=== PATIENT | male | born 1955 | race Caucasian/White ===

== ENCOUNTER 2018-02-26 14:19 | Emergency (ER) | payer BC, SELFPAY ==
[2018-02-26 14:50] LABS: #Lymphocytes 0.5 thou/uL (1.20-3.40); #Monocytes 0.5 thou/uL (0.11-0.59); #Neutrophils 6.7 thou/uL (1.40-6.50); %Basophils 0.4 % (0.0-1.0); %Eosinophils 0.6 % (0.0-10.0); %Lymphocytes 6.4 % (21.0-51.0); %Monocytes 6.2 % (0.0-10.0); %Neutrophils 86.4 % (42.0-75.0); Hemoglobin 16.3 g/dL (14.0-18.0); Mean Corpuscular HGB CONC 34.7 g/dL (32.0-36.0); Mean Corpuscular Hemoglobin 34.7 pg (27.0-31.0); Mean Platelet Volume 6.5 fL (7.4-10.4); Platelet Count 172 thou/uL (130-400); RBC Distribution Width 11.6 % (11.5-14.5); Red Blood Cell (RBC) Count 4.69 mill/uL (4.70-6.10); White Blood Cell (WBC) Count 7.8 thou/uL (4.8-10.8)
[2018-02-26 15:15] LABS: ALT (SGPT) 38 U/L (8-55); AST (SGOT) 59 U/L (5-34); Albumin 3.8 g/dL (3.4-4.8); Alkaline Phosphatase 94 U/L (40-150); Anion Gap 19 mmol/L (10-20); BUN (Urea Nitrogen) 5 mg/dL (8.4-25.7); Bilirubin, Total 0.6 mg/dL (0.2-1.2); Calc. Creatinine Clearance 0 mL/min (70-130); Calcium 9.1 mg/dL (7.8-10.44); Carbon Dioxide 17 mmol/L (23-31); Chloride 95 mmol/L (98-107); Estimated GFR-MDRD 83; Globulin 2.9 g/dL (2.4-3.5); Glucose 148 mg/dL (80-115); Potassium 4.2 mmol/L (3.5-5.1); Protein, Total 6.7 g/dL (5.8-8.1); Sodium 127 mmol/L (136-145)
[2018-02-26 15:27] LABS: Acetaminophen Less than 6.0 mcg/mL (10.0-30.0); Alcohol Less than 10 mg/dL (Less than 10); CK (CPK) 131 U/L (30-200); Salicylate Less than 8.0 mg/dL (15.0-30.0)
[2018-02-26] MEDS ORDERED: Multivitamins, Adult 10 ML, Thiamine HCl 100 MG, Folic Acid 1 MG in Dextrose 5 %-0.45 %... IV ONE (15:45)
--- NOTE | 2018-02-26 15:51 | CT ---
CT BRAIN WITHOUT CONTRAST: HISTORY: Altered mental status. Seizure. COMPARISON: 03/14/2016 FINDINGS: No evidence of infarct, hemorrhage, midline shift, or abnormal extraaxial fluid collections is seen. The ventricular size is stable, and the basilar cisterns are patent. The bony calvarium is intact. An old left zygomatic fracture is again noted. The visualized paranasal sinuses and mastoid air iraj ls are well aerated. IMPRESSION: No CT evidence of acute intracranial process. POS: [facility]
== END 2018-02-26 16:17 | disposition home or self-care (01) ==
LOC: ERS 14:19
DX: R56.9 Unspecified convulsions (principal); F10.20 Alcohol dependence, uncomplicated; F17.210 Nicotine dependence, cigarettes, uncomplicated
CPT/HCPCS: 36415; 70450; 80053; 80307; 85025; 93005; J3411; J7042

== ENCOUNTER 2018-04-21 16:13 | Inpatient (IN) | payer MEDICARE ==
[2018-04-21] MEDS ORDERED: Morphine 4 MG/ML VIAL SLOW IVP PRN ×3 (16:33→19:46)
[2018-04-21] MEDS ORDERED: Ondansetron PF 4 MG/2 ML Vial SLOW IVP PRN (16:34)
[2018-04-21] MEDS ORDERED: Ketorolac Tromethamine 30 MG/ML VIAL IVP PRN (16:34)
[2018-04-21] MEDS ORDERED: Ondansetron ODT 8 MG TAB PO PRN (16:35)
[2018-04-21] MEDS ORDERED: Acetaminophen 325 MG TAB PO PRN (16:35)
[2018-04-21 16:37] VITALS: BMI 19.6
[2018-04-21] MEDS ORDERED: D5 1/2 NS w/20 mEq KCL 1,000 ML IV SCH (16:45)
--- NOTE | 2018-04-21 17:53 | CT ---
CT PELVIS WITHOUT CONTRAST: CT RIGHT HIP WITH CORONAL AND SAGITTAL REFORMATIONS: HISTORY: Pain in the right hip post fall. FINDINGS: There is a cortical step-off of the subcapital region of the neck of the proximal right femur, consis tent with fracture. There may be associated mild impaction. There is also a questionable fracture i nvolving the subcapital region of the radial aspect of the neck, also suspicious for fracture. The l eft hip is intact. There is fecal material in the rectosigmoid. A fat-containing left inguinal hernia is present. Vasc ular calcifications are noted. IMPRESSION: Fracture of the neck of the right femur. POS: [facility]
[2018-04-21] MEDS ORDERED: Dextrose 5% in Water 1,000 ML IV PRN (19:46)
[2018-04-21] MEDS ORDERED: Dextrose 50% Abboject 50 ML SYRINGE SLOW IVP PRN (19:46)
[2018-04-21] MEDS ORDERED: hydrALAZINE 20 MG/ML VIAL SLOW IVP PRN (19:46)
[2018-04-21] MEDS ORDERED: Ondansetron PF 4 MG/2 ML Vial IVP PRN (19:46)
[2018-04-21] MEDS ORDERED: Lorazepam 2 MG/ML VIAL SLOW IVP PRN (19:46)
[2018-04-21] MEDS ORDERED: Ketorolac Tromethamine 30 MG/ML VIAL IVP SCH (20:15)
[2018-04-21] MEDS ORDERED: traMADol HCl 50 MG TAB PO SCH (20:45)
[2018-04-21] MEDS ORDERED: Prevnar 13-Val Conj/PF 0.5 ML SYRINGE IM ONE (21:00)
[2018-04-21] MEDS ORDERED: Oxazepam 10 MG CAP PO SCH ×2 (21:00)
[2018-04-21] MEDS: Famotidine/PF 20 mg/2ml Vial SLOW IVP SCH (21:29)
[2018-04-21 21:35] LABS: INR-International Normal Ratio 0.9; Prothrombin Time 12.7 SEC (12.0-14.7)
[2018-04-21] MEDS: Sodium Chloride 0.9% 1,000 ML IV SCH (21:35)
[2018-04-21 21:36] LABS: PTT 30.1 SEC (22.9-36.1)
--- NOTE | 2018-04-21 22:16 | CON ---
DATE OF CONSULTATION: 04/21/2018 HISTORY OF PRESENT ILLNESS: Ms. Azul is a 63-year-old male status post fall onto his right hip. The patient had a fall 1 week ago. The patient has chronic alcoholism problems with history of seizures being currently worked up by the Neurology Service. The patient presents today with right hip pain as 10 out of 10. PAST MEDICAL HISTORY: Includes alcoholism, seizures, not otherwise unspecified. PAST SURGICAL HISTORY: Includes left proximal humerus fracture. He has a right clavicle fracture from a fall 1 week ago. MEDICATIONS: 1. Vitamin B12. 2. B6. 3. Imodium. ALLERGIES: NO KNOWN DRUG ALLERGIES. SOCIAL HISTORY: Positive alcohol greater than 12 pack a day, 1/2 packs per day. 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 He has a history of marijuana. His and daughter are at bedside. PHYSICAL EXAMINATION: VITAL SIGNS: Temperature 97.9, heart rate 84, respirations 18, oxygen saturation 100% on room air, blood pressure 176/82. GENERAL: Alert and oriented male, in no acute distress, resting comfortably in bed. EXTREMITIES: Right lower extremity, the patient is neurovascularly intact through L4 through S1 distributions on dorsiflexion and extension, no effusion of the knee. He has pain with internal and external rotation of his right hip and pain with proximation localized to the groin. PELVIS: Otherwise stable to AP and lateral compression. LABORATORY DATA: Radiograph of the right hip and CT scan showing a subcapital femoral neck fracture, nondisplaced. H and H 14 and 41, creatinine 0.8, PTT 25. IMPRESSION: 1. Right subcapital femoral neck fracture. 2. Chronic alcoholism. 3. Seizures. 4. Tobacco abuse. 5. History of multiple falls. ASSESSMENT AND PLAN: The patient will be taken to the OR tomorrow for a closed reduction and percutaneous screw fixation of his right femoral neck fracture. Discussed with the family both total hip arthroplasties in the future for possible avascular necrosis versus failed fixation and requiring total hip. I discussed that given the patient's multiple falls with his medical problems, I would like to do this small procedure given the nondisplaced nature of his femoral neck fracture. I discussed the risks and benefits of surgery to include pain, scar, bleeding, infection, damage to vital structures, decreased range of motion and strength, nonunion, malunion, need for total hip arthroplasty in the future, loss of life or limb. I discussed the patient's mortality associated with a femoral neck fracture. I discussed the risk of withdrawals given the patient's chronic alcoholism. I spoke with both his daughter, , and the patient in the room discussing his mortality both from hip fracture roughly 40%. My further concerns of possible withdrawal, I feel the patient would need medical management postoperatively for his significant risk of withdrawals. The patient's family is unaware, discussed the reason why we are performing the procedures is to help the patient mobilize and remain active. The family and the patient agree with operative fixation. We will plan for surgical intervention in the morning. Job ID: [id number] MTDD
--- NOTE | 2018-04-22 | HP ---
HISTORY OF PRESENT ILLNESS: This is a 63-year-old gentleman who was a transfer from [place] [facility] status post fall last night. The patient is a chronic alcohol abuser, drinks approximately 12 to 18 beers a day every day. 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 He has been retired for approximately 10 years and reports that he does start drinking about lunch time until he falls asleep. The patient has had multiple falls within the last couple of years. Last week, he had a fall in his garage, injuring his right clavicle. Also, he fell a couple of years ago, injuring his left shoulder and requiring surgical repair. The patient also had a episode around [place] this past year, where he had a seizure activity. He was taken to the emergency room with workup and it was determined that the patient had a zero alcohol blood count and it was determined that was the reason potentially for his seizure-like activity. The patient reports he does not really eat much, but does take vitamins daily. The patient had a recent EEG, which was normal. The patient also is scheduled for an MRI of his brain this coming up week. The patient also has a neurologist appointment in May for the new onset of seizures. The patient did have a cardiac workup today in the emergency room. The patient with negative troponin and normal EKG. The patient denies any dizziness, chest pain, or palpitations. The patient and family both feel that these falls are from his chronic alcohol abuse. When the patient fell last night, he had no pain, but woke up this morning with pain to his right hip. The patient denies any urinary problems or any recent illnesses. The patient did receive a banana bag with IV fluids in the emergency room in [place]. The patient also received Toradol for pain IV and morphine. The patient was given Ativan 1 mg also in the emergency room. Dr. Chavez was consulted for patient's right hip fracture. PAST MEDICAL HISTORY: Chronic alcohol abuse; new onset seizure diagnosed in 02/2018, related to alcohol withdrawal; history of hypertension. PAST SURGICAL HISTORY: Bilateral cataracts; right hand surgery, status post staph infection. Left shoulder surgery on 03/09/2016. EGDs x2 for dysphagia. SOCIAL HISTORY: The patient drinks every day, approximately 12 to 18 drinks a day. The patient uses marijuana, the patient also has been a smoker for 40 years, approximately 1-1/2 packs per day. The patient lives at home with his . The patient is retired. REVIEW OF SYSTEMS: A 10-point review of systems is negative unless otherwise indicated in the HPI. PHYSICAL EXAMINATION: VITAL SIGNS: Temperature 97.9, pulse 84, respirations 18, 100% SpO2 on room air, and blood pressure currently 176/82. GENERAL: The patient is awake, alert, no distress. Intermittent pain to right thigh. Family at bedside. HEENT: Normocephalic and atraumatic. Pupils are equal and reactive at 3 mm bilateral. The patient with moist mucous membranes. NECK: With normal range of motion, trachea is midline. No cervical tenderness. RESPIRATORY/CHEST: No respiratory distress, breath sounds clear bilateral, no wheezes, rales, or rhonchi noted. No tenderness to chest or crepitus noted. CARDIOVASCULAR: Regular rate and rhythm. Heart sounds normal. No murmurs noted. The patient with healing bruise over the right distal clavicle with associated tenderness. ABDOMEN: Soft, nontender, and nondistended. No peritoneal signs. No rigidity or guarding. No rebound. Positive active bowel sounds. BACK: Normal range of motion. No tenderness. EXTREMITIES: Upper extremities, the patient with limited range of motion due to right shoulder pain due to recent clavicle fracture 1 week ago. Left upper extremity, normal findings. Both upper extremities with normal pulses 2+ and sensation intact. Lower extremities, right hip pain with mild shortening. Positive distal pulses bilateral. NEUROLOGIC: The patient oriented to person, place, time, and event. Speech is normal and cranial nerves are intact. LABORATORY DATA: WBC 6.6, RBC 4.31, hemoglobin 14.5, hematocrit 41.5, MCV 96.2, MCH 33.5, MCHC 38.8, RDW 11.2, platelets 306, and MPV 5.9. APTT 25.9. Sodium 135, potassium 5.1, chloride 99, CO2 of 25, anion gap 16, BUN 6, creatinine 0.80, estimated GFR 90, glucose 100, and calcium 9.9. Total bilirubin 0.9, AST 39, ALT 27, and alkaline phosphatase 101. CK-MB 1.5, CK 72, troponin 0.010. Serum total protein 6.6, albumin 4.0, globulin 2.6, albumin-globulin ratio 1.5. DIAGNOSTICS: Hip x-ray suggesting a CT or MRI for confirmation of right femoral neck impacted subcapital neck fracture. Pelvis x-ray with limited evaluation of the right femoral neck due to rotation of the right hip. Lower extremity CT, fracture at the neck of the right femur. Pelvis CT, again fracture of the neck of the right femur. ASSESSMENT: 1. Status post ground-level fall with recurrent falls. 2. Femoral neck fracture, right. 3. Chronic alcohol abuse. 4. Acute traumatic pain. PLAN: We will admit the patient to the surgical ortho floor. The patient will be placed on seizure precautions and watch closely for alcohol withdrawal. The patient will be started on Serax 3 times a day. We will control the patient's pain. The patient will be placed n.p.o. after midnight except for medications for repair of the right femur fracture with Dr. Chavez. PT, OT, and rehab screen will be placed. The patient has been discussed with the attending trauma surgeon, Dr. Gaitan, who agrees with the plan. Job ID: [id number]
[2018-04-22] MEDS: Acetaminophen 1,000 MG in Premix Bag 1 BAG IVPB SCH ×2 (00:12→05:52)
[2018-04-22 02:49] LABS: Bilirubin Negative (Negative); Blood, Urine Negative (Negative); Clarity CLEAR (Clear); Glucose, Urine (Dipstick) Negative (Negative); Leukocyte Negative (Negative); Nitrite Negative (Negative); Protein, Urine (Dipstick) Negative (Neg-Trace)
[2018-04-22 02:52] LABS: Bacteria/HPF None Seen HPF (None Seen); Hyaline Casts/LPF 0-3 HYALINE CAST LPF (0-3 Hyaline); Pathc Cast-AUWi Flag 0.14 (0-2.49); RBC/HPF 0-3 HPF (0-3); Squamous Epithelial 0-3 HPF (0-3); WBC/HPF 0-3 HPF (0-3)
[2018-04-22] MEDS: Ketorolac Tromethamine 30 MG/ML VIAL IVP SCH ×3 (03:13→15:33)
[2018-04-22 05:31] LABS: #Basophils 0.1 thou/uL (0.0-0.2); #Eosinphils 0.1 thou/uL (0.0-0.7); #Lymphocytes 1.7 thou/uL (1.20-3.40); #Monocytes 0.7 thou/uL (0.11-0.59); #Neutrophils 3.7 thou/uL (1.40-6.50); %Basophils 0.8 % (0.0-1.0); %Eosinophils 2.1 % (0.0-10.0); %Lymphocytes 27.2 % (21.0-51.0); %Monocytes 10.7 % (0.0-10.0); %Neutrophils 59.1 % (42.0-75.0); Hemoglobin 13.2 g/dL (14.0-18.0); Mean Corpuscular HGB CONC 33.3 g/dL (32.0-36.0); Mean Corpuscular Hemoglobin 34.7 pg (27.0-31.0); Mean Platelet Volume 6.8 fL (7.4-10.4); Platelet Count 260 thou/uL (130-400); Red Blood Cell (RBC) Count 3.81 mill/uL (4.70-6.10); White Blood Cell (WBC) Count 6.2 thou/uL (4.8-10.8)
[2018-04-22 05:56] LABS: ALT (SGPT) 16 U/L (8-55); AST (SGOT) 24 U/L (5-34); Albumin 3.4 g/dL (3.4-4.8); Alkaline Phosphatase 94 U/L (40-150); Anion Gap 15 mmol/L (10-20); BUN (Urea Nitrogen) 8 mg/dL (8.4-25.7); Calc. Creatinine Clearance 88 mL/min (70-130); Calcium 8.9 mg/dL (7.8-10.44); Carbon Dioxide 23 mmol/L (23-31); Chloride 99 mmol/L (98-107); Estimated GFR-MDRD Greater than 90; Globulin 2.5 g/dL (2.4-3.5); Glucose 79 mg/dL (80-115); Magnesium 2.1 mg/dL (1.6-2.6); Phosphorus 3.8 mg/dL (2.3-4.7); Potassium 3.7 mmol/L (3.5-5.1); Protein, Total 5.9 g/dL (5.8-8.1); Sodium 133 mmol/L (136-145)
[2018-04-22] MEDS ORDERED: Potassium Chloride 40 MEQ in Premix Bag 1 BAG IVPB SCH (06:15)
[2018-04-22] MEDS: Potassium Chloride 20 MEQ in Premix Bag 1 BAG IVPB SCH ×2 (07:58→09:08)
[2018-04-22] MEDS: Sodium Chloride 0.9% 1,000 ML IV SCH ×3 (08:09→17:33)
[2018-04-22] MEDS: Famotidine/PF 20 mg/2ml Vial SLOW IVP SCH (09:05)
[2018-04-22] MEDS: Folic Acid 1 MG TAB PO SCH (09:06)
[2018-04-22] MEDS: Oxazepam 10 MG CAP PO SCH ×4 (09:08→20:03)
[2018-04-22] MEDS: Morphine 4 MG/ML VIAL SLOW IVP PRN ×2 (10:19→17:18)
[2018-04-22 12:35] LABS: Folate (Folic Acid) 13.9 ng/mL (7.0-31.4)
[2018-04-22] MEDS ORDERED: Fentanyl 100 MCG/2 ML VIAL ONE ×3 (12:43→15:38)
--- NOTE | 2018-04-22 14:21 | RAD ---
EXAM: CHEST ONE VIEW: 04/22/18 HISTORY: Preoperative evaluation following a fall. COMPARISON: 04/24/16. FINDINGS: Postsurgical changes involving the left shoulder, stable. Multiple healed left rib fractures. No pneu monia, edema, or other significant acute intrathoracic disease. Heart size is normal. IMPRESSION: No acute intrathoracic disease. Postsurgical changes left shoulder. Healed left rib fractures. Stable from prior study. POS: [facility]
--- NOTE | 2018-04-22 14:34 | PRG ---
DATE OF SERVICE: 04/22/2018 SUBJECTIVE: Mr. Azul is a 63-year-old man, who is status post ground level fall with right femoral neck fracture. He has a history pertinent for recurrent falls and chronic alcohol abuse. The patient reports being in pain at the fracture site that has been uncontrolled by current pain regimen. After that, he has not had any acute events overnight. OBJECTIVE: VITAL SIGNS: Temp 97.9, pulse 57, respirations 18, O2 saturation 97 on room air, and BP 156/67. GENERAL: The patient is awake, alert, sitting up in bed, appears to be in acute distress from his pain. HEENT: Unremarkable. CARDIOVASCULAR: Regular rate and rhythm. No rubs, murmurs, or gallops. RESPIRATORY: Lungs are clear. No acute respiratory distress. Equal rise and fall of chest. ABDOMEN: Soft, nontender, nondistended. EXTREMITIES: The patient moves all 4 extremities. Movement to the right leg is limited due to pain. However, neurovascularly intact. LABORATORY DATA: Hematology pertinent for hemoglobin 13.2, hematocrit 39.6, MCV 104, CBC. Sodium 133, BUN 8, creatinine 0.78. There is no pertinent imaging to review at this time. ASSESSMENT: 1. Status post ground level fall with history of recurrent falls. 2. Right femoral neck fracture. 3. Chronic alcohol abuse. 4. Acute traumatic pain. PLAN: 1. Add morphine to pain regimen for better control while the patient is n.p.o. 2. The patient is scheduled to go to the OR today with Dr. Chavez for the fixation of right femoral neck fracture. 3. Chronic alcohol abuse. The patient has Serax in addition to having received a banana bag with daily supplements of folic acid and thiamine. We will continue to monitor the patient for any signs of withdrawal. 4. Plan for PT, OT, and rehab screen after surgery. The patient was seen and assessed by Dr. Clement Rivers, who agrees with the plan above. Job ID: [id number]
[2018-04-22] MEDS ORDERED: Lidocaine 1% PF 5 ML VIAL ONE (15:03)
[2018-04-22] MEDS ORDERED: PROPOFOL 200 MG/20 ML VIAL ONE (15:03)
[2018-04-22] MEDS ORDERED: ePHEDrine 50 MG/ML VIAL ONE (15:03)
[2018-04-22] MEDS ORDERED: Rocuronium Bromide 10 MG/ML (10ML VIAL) ONE (15:03)
[2018-04-22] MEDS ORDERED: Ondansetron PF 4 MG/2 ML Vial ONE (15:03)
[2018-04-22] MEDS ORDERED: Dexamethasone 20 MG/5 ML VIAL ONE (15:03)
[2018-04-22] MEDS ORDERED: Glycopyrrolate 0.2 MG/ML 5 ML SYRINGE ONE (15:03)
--- NOTE | 2018-04-22 15:47 | RAD ---
RIGHT HIP 2 VIEWS: HISTORY: Pain, right hip screws. COMPARISON: CT prior day. FINDINGS: There is satisfactory position of the 3 percutaneous partially threaded cannulated screws of the righ t femoral neck. IMPRESSION: Satisfactory postoperative appearance. POS: [facility]
[2018-04-22] MEDS ORDERED: CEFAZOLIN/Water 2 GM/20 ML SYRINGE SLOW IVP SCH (16:03)
[2018-04-22] MEDS: CEFAZOLIN 2 GM in Premix Bag 1 BAG IVPB SCH (17:15)
[2018-04-22] MEDS: Nicotine 21 MG PATCH TD SCH (17:32)
[2018-04-22] MEDS ORDERED: traMADol HCl 50 MG TAB PO PRN (18:13)
[2018-04-22] MEDS: Acetaminophen 500 MG TAB PO SCH ×2 (18:36→23:09)
[2018-04-22] MEDS: traMADol HCl 50 MG TAB PO SCH ×2 (18:37→23:09)
[2018-04-22] MEDS: Senokot S 8.6-50 MG TAB PO SCH (20:02)
[2018-04-22] MEDS: Famotidine 20 MG TAB PO SCH (20:03)
[2018-04-22] MEDS: Ibuprofen 800 MG TAB PO SCH (23:09)
[2018-04-23] MEDS: CEFAZOLIN 2 GM in Premix Bag 1 BAG IVPB SCH (01:11)
[2018-04-23] MEDS: Ibuprofen 800 MG TAB PO SCH ×3 (05:12→21:23)
[2018-04-23] MEDS: Acetaminophen 500 MG TAB PO SCH ×3 (05:12→18:22)
[2018-04-23] MEDS: traMADol HCl 50 MG TAB PO SCH ×3 (05:12→18:23)
[2018-04-23] MEDS: Sodium Chloride 0.9% 1,000 ML IV SCH (05:20)
[2018-04-23 05:29] LABS: #Lymphocytes 0.6 thou/uL (1.20-3.40); #Monocytes 0.7 thou/uL (0.11-0.59); #Neutrophils 8.1 thou/uL (1.40-6.50); %Lymphocytes 6.6 % (21.0-51.0); %Monocytes 7.4 % (0.0-10.0); %Neutrophils 86.1 % (42.0-75.0); Hemoglobin 13.1 g/dL (14.0-18.0); Mean Corpuscular HGB CONC 33.8 g/dL (32.0-36.0); Mean Corpuscular Hemoglobin 35.1 pg (27.0-31.0); Mean Platelet Volume 6.7 fL (7.4-10.4); Platelet Count 249 thou/uL (130-400); RBC Distribution Width 11.6 % (11.5-14.5); Red Blood Cell (RBC) Count 3.75 mill/uL (4.70-6.10); White Blood Cell (WBC) Count 9.4 thou/uL (4.8-10.8)
[2018-04-23 05:38] LABS: Anion Gap 19 mmol/L (10-20); BUN (Urea Nitrogen) 8 mg/dL (8.4-25.7); Calc. Creatinine Clearance 89 mL/min (70-130); Calcium 9.4 mg/dL (7.8-10.44); Carbon Dioxide 19 mmol/L (23-31); Chloride 97 mmol/L (98-107); Estimated GFR-MDRD Greater than 90; Glucose 113 mg/dL (80-115); Magnesium 2.1 mg/dL (1.6-2.6); Phosphorus 3.9 mg/dL (2.3-4.7); Potassium 4.6 mmol/L (3.5-5.1); Sodium 130 mmol/L (136-145)
[2018-04-23] MEDS ORDERED: hydrOXYzine 10 MG TAB PO PRN (06:38)
[2018-04-23] MEDS ORDERED: hydrALAZINE 10 MG TAB PO PRN (06:44)
[2018-04-23] MEDS ORDERED: Oxazepam 10 MG CAP PO SCH ×3 (07:18→12:00)
[2018-04-23] MEDS: Folic Acid 1 MG TAB PO SCH (08:45)
[2018-04-23] MEDS: Famotidine 20 MG TAB PO SCH ×2 (08:45→21:23)
[2018-04-23] MEDS: Aspirin 81 mg Enteric Coated Tablet PO SCH ×2 (08:45→21:23)
[2018-04-23] MEDS: Senokot S 8.6-50 MG TAB PO SCH ×2 (08:45→21:23)
[2018-04-23] MEDS: Oxazepam 10 MG CAP PO SCH ×3 (08:46→21:22)
[2018-04-23] MEDS: Polyethylene Glycol 3350 17 GM Packet PO SCH (08:46)
[2018-04-23] MEDS ORDERED: Nicotine 21 MG PATCH TD SCH (09:00)
[2018-04-23] MEDS ORDERED: cloNIDine 0.2 MG TAB PO SCH (12:00)
--- NOTE | 2018-04-23 12:44 | OP ---
DATE OF PROCEDURE: 04/22/2018 PREOPERATIVE DIAGNOSIS: Right femoral neck fracture, nondisplaced. POSTOPERATIVE DIAGNOSIS: Right femoral neck fracture, nondisplaced. PROCEDURE PERFORMED: Closed reduction and percutaneous screw fixation of a femoral neck fracture. COAL HAULER OPERATOR: None. ANESTHESIOLOGIST: Dr. Lillian Castellanos. ANESTHESIA: The patient received a general endotracheal intubation. ESTIMATED BLOOD LOSS: 50 mL. TOURNIQUET TIME: None. ANTIBIOTICS: Ancef 2 g. IMPLANTS: Two 73 screws, one 95, and two 105 and three washers. COMPLICATIONS: None. HISTORY OF PRESENT ILLNESS: Mr. Azul is a 63-year-old male with history of chronic alcoholism and a fall a week ago, broke his clavicle. He had a fall today and sustained a right femoral neck fracture, nondisplaced. I discussed with the patient risks and benefits of an open reduction and internal fixation versus total hip arthroplasty with percutaneous screws. I discussed the risks and benefits of surgery to include pain, scar, bleeding, infection, continued pain despite surgical intervention, failure of hardware, need for further surgeries, conversion to total hip arthroplasty, loss of life or limb. The patient understood that he may develop AVN, may complete through the fracture if he continues to drink. I discussed risk of delirium tremens. I discussed the patient's mortality with the patient and he understood all these risks and benefits and elected to proceed. DESCRIPTION OF PROCEDURE: Time-out was performed, designating the patient's right lower extremity as the operative site, based on site, consents, and markings. After time-out, the patient's right lower extremity was prepped and draped in sterile fashion. The patient had a lateral incision made down through skin to the IT band. Screws were placed across the patient's femoral neck under fluoroscopic guidance using the guide for helping to place the screws a distance apart, placed it through an inverted triangle fashion superiorly and one inferiorly to close the neck. I placed drills on top and placed two 105s and one 95 mm screw with a washer. The patient had overall maintained his alignment throughout the procedure without displacement. I then washed and I closed the ITB band with 0, 2-0 and kaya for skin. The patient will be weightbearing as tolerated. He will be followed inhouse by Trauma. I am concerned about the patient's risk for DTs and the patient's mortality associated with this fracture. Job ID: [id number] MTDD
--- NOTE | 2018-04-23 13:38 | PRG ---
DATE OF SERVICE: 04/23/2018 SUBJECTIVE: Mr. Zaragoza is a 63-year-old man, who is status post ground level fall with right femoral neck fracture. He is postop day #1 for closed reduction and percutaneous fixation of the right femoral fracture. He also has a history pertinent for recurrent falls and chronic alcohol abuse. Overnight, patient became agitated with high blood pressures and was A and O x2, oriented only to person and time, but not place. He was stating he wanted to go home and pulled his IV lines out. This is likely due to his alcohol withdrawal despite being on Serax. The patient was unable to sleep well due to his agitation. Aside from this he has been recovering well from surgery with minimal pain and tolerating a regular diet OBJECTIVE: VITAL SIGNS: Temperature is 97.5, pulse is 65, respiration 14, O2 saturation 100% on room air, blood pressure is 170/83. GENERAL: The patient is awake, alert, sitting up in bed and talking on the phone. He is not in any acute distress. HEENT: Unremarkable. CARDIOVASCULAR: Regular rate and rhythm. No rubs, murmurs, or gallops. RESPIRATORY: Lungs are clear, no acute respiratory distress. Equal rise and fall of chest. ABDOMEN: Soft, nontender, nondistended. EXTREMITIES: The patient moves all 4 extremities. There is an area of dressing on his right hip from the surgery. He is able to move his right leg and is neurovascularly intact. However, he has admitted to pain and recent surgery. LABORATORY DATA: WBC 9.4, hemoglobin 13.1, hematocrit 38.8, MCV 104, platelet count 249. Chemistry: Sodium 130, chloride 97, carbon dioxide 19, BUN 8, creatinine 0.77, GFR greater than 90, phosphorus 3.9, magnesium 2.1. DIAGNOSTIC IMAGING: There is no new diagnostic imaging this morning. ASSESSMENT: 1. Status post ground level fall with history of recurrent falls. 2. Right femoral neck fracture, status post closed reduction and percutaneous screw fixation. 3. Chronic alcohol abuse. 4. Acute alcohol withdrawal, stable 5. Acute traumatic pain. 6. Acute versus chronic hyponatremia. PLAN: 1. Now the patient is postop and tolerating p.o., we will discontinue IV pain medications and switch him to oral pain regimen. 2. For acute alcohol withdrawal: We will increase the patient Serax dosing to 20 mg 4 times a day. Will add Clonidine 0.2 mg q.6 hours to treat both elevated blood pressure and acute alcohol withdrawals. 3. Chronic alcohol abuse: Continue daily thiamine, folate and multivitamin 4. The patient plans to work with PT, OT and rehab screen today 5. Elevated blood pressures: The patient does not have a history of hypertension; however, this new onset of elevated blood pressures is likely due to acute alcohol withdrawal 6. Acute versus chronic hyponatremia: Likely due to patient's history of chronic alcohol abuse. Other causes have been ruled out and are unlikely. We will water restrict the patient to less than 1.8 L a day. 7. DVT prophylaxis. We will start the patient on aspirin 81 mg b.i.d. and encourage walking with Physical Therapy. This patient was seen and assessed by Dr. Clement Rivers, who agrees with the above findings. Job ID: [id number] [facility]
[2018-04-23] MEDS: cloNIDine 0.3 MG TAB PO SCH (18:22)
[2018-04-23] MEDS: Nicotine 21 MG PATCH TD SCH (18:23)
[2018-04-24] MEDS: cloNIDine 0.3 MG TAB PO SCH ×3 (00:48→11:36)
[2018-04-24] MEDS: traMADol HCl 50 MG TAB PO SCH ×3 (00:48→11:34)
[2018-04-24] MEDS: Acetaminophen 500 MG TAB PO SCH ×3 (00:48→11:34)
[2018-04-24] MEDS: Oxazepam 10 MG CAP PO SCH ×3 (03:29→14:21)
[2018-04-24] MEDS: Ibuprofen 800 MG TAB PO SCH ×2 (06:09→14:21)
[2018-04-24 07:13] LABS: #Eosinphils 0.1 thou/uL (0.0-0.7); #Lymphocytes 1.7 thou/uL (1.20-3.40); #Monocytes 0.5 thou/uL (0.11-0.59); #Neutrophils 3.4 thou/uL (1.40-6.50); %Basophils 0.5 % (0.0-1.0); %Eosinophils 1.3 % (0.0-10.0); %Lymphocytes 29.8 % (21.0-51.0); %Monocytes 9.2 % (0.0-10.0); %Neutrophils 59.2 % (42.0-75.0); Hemoglobin 12.1 g/dL (14.0-18.0); Mean Corpuscular HGB CONC 34.1 g/dL (32.0-36.0); Mean Corpuscular Hemoglobin 35.4 pg (27.0-31.0); Mean Platelet Volume 6.9 fL (7.4-10.4); Platelet Count 222 thou/uL (130-400); RBC Distribution Width 11.8 % (11.5-14.5); Red Blood Cell (RBC) Count 3.42 mill/uL (4.70-6.10); White Blood Cell (WBC) Count 5.8 thou/uL (4.8-10.8)
[2018-04-24 07:30] LABS: Anion Gap 14 mmol/L (10-20); BUN (Urea Nitrogen) 8 mg/dL (8.4-25.7); Calc. Creatinine Clearance 98 mL/min (70-130); Calcium 9.3 mg/dL (7.8-10.44); Carbon Dioxide 24 mmol/L (23-31); Chloride 100 mmol/L (98-107); Estimated GFR-MDRD Greater than 90; Glucose 77 mg/dL (80-115); Magnesium 1.9 mg/dL (1.6-2.6); Phosphorus 3.3 mg/dL (2.3-4.7); Potassium 3.6 mmol/L (3.5-5.1); Sodium 134 mmol/L (136-145)
[2018-04-24] MEDS: Potassium Phosphate 15 MMOL in Sodium Chloride 0.9% 250 ML 250 ML IVPB SCH ×2 (09:38→09:39)
[2018-04-24] MEDS: Senokot S 8.6-50 MG TAB PO SCH (09:39)
[2018-04-24] MEDS: Polyethylene Glycol 3350 17 GM Packet PO SCH (09:39)
[2018-04-24] MEDS: Famotidine 20 MG TAB PO SCH (09:39)
[2018-04-24] MEDS: Folic Acid 1 MG TAB PO SCH (09:40)
[2018-04-24] MEDS: Aspirin 81 mg Enteric Coated Tablet PO SCH (11:34)
--- NOTE | 2018-04-24 16:26 | DIS ---
DATE OF ADMISSION: 04/21/2018 DATE OF DISCHARGE: 04/24/2018 ADMISSION DIAGNOSES: 1. Mechanical fall from standing, recurrent. 2. Right femoral neck fracture. 3. Hyponatremia. 4. Alcohol abuse. DISCHARGE DIAGNOSES: 1. Mechanical fall from standing, recurrent. 2. Right femoral neck fracture. 3. Hyponatremia. 4. Alcohol abuse. CONSULTING PHYSICIAN: Deshaun Chavez MD. PROCEDURE: Closed reduction and percutaneous screw fixation of a femoral neck fracture on the right on April 22, 2018. HOSPITAL COURSE: The patient is a 63-year-old male who reported unwitnessed fall. The patient states that he drinks every day until he passes out for the last 10 years. He has been retired for 10 years and this has caused him to have several recent falls. On evaluation by the emergency department, it was noted that he had a right femoral neck fracture and an old clavicle fracture. He was admitted to the Trauma Service and went to the OR on April 22, where he received a closed reduction and percutaneous screw fixation of a femoral neck fracture. He was subsequently sent to the floor. He did start to show some initial signs of alcohol withdrawal, but the patient had already been started at Serax 10 mg q.8 hours on admission. He became hypertensive and more agitated and subsequently the Serax increased to 20 mg q.8 hours as well as clonidine 0.3 mg q.6 hours was started. The patient subsequently had improvement in his ability to participate physical therapy as well as his vital signs. After working with physical therapy, it was determined that the patient would most benefit from going to acute rehab. At the time of discharge, the patient was tolerating a regular diet, participating in physical therapy and voiding without difficulty and has had a bowel movement. DISCHARGE DISPOSITION: Acute rehab. DISCHARGE CONDITION: Satisfactory. PHYSICAL EXAMINATION: VITAL SIGNS: Temperature 97.5, pulse 57, respirations 18, oxygen saturation 99%, blood pressure 156/79. GENERAL: Middle-aged male, sitting up at edge of bed, working with physical therapy. The patient ambulating at the time of evaluation this morning. No signs of acute distress. PULMONARY: Equal chest rise and fall. Breath sounds clear bilaterally. No signs of acute distress. CARDIO: Regular rate and rhythm. No murmurs, gallops, or rubs. ABDOMEN: Soft, nontender, nondistended. EXTREMITIES: Gross motor and sensation intact in all 4 extremities. 2+ pulses in all extremities. No swelling noted. DISCHARGE INSTRUCTIONS: The patient is to be discharged to an acute rehab facility with activity as tolerated and weightbearing as tolerated bilateral lower extremities. He is on a regular diet with Ensure t.i.d. He is to receive occupational and physical therapy and continue to use his incentive spirometer and walker. DISCHARGE MEDICATIONS: Include acetaminophen, aspirin, clonidine, famotidine, folic acid, ibuprofen, nicotine, Serax, MiraLAX, Senokot, thiamine, and tramadol. FOLLOWUP: He has a followup appointment with Orthopedic Surgery in 10 days, Dr. Chavez. This is merely a summary of the patient's hospitalization. For full details, please see his medical record in its entirety. Job ID: [id number]
[2018-04-24 16:37] VITALS: BP 151/65; TEMP 97.8
== END 2018-04-24 16:35 | DRG 481 ==
LOC: SURG B 16:13 → SURG A 04-23 07:04
PROVIDERS: ADMIT Surgery; ATTEND Surgery
PROC: 0QS634Z Reposition Right Upper Femur with Internal Fixation Device, Percutaneous Approach (ICD-10-PCS; principal; 2018-04-22)
DX: S72.011A Unspecified intracapsular fracture of right femur, initial encounter for closed fracture (principal); E87.1 Hypo-osmolality and hyponatremia; I10 Essential (primary) hypertension; F10.10 Alcohol abuse, uncomplicated; R45.1 Restlessness and agitation; F17.210 Nicotine dependence, cigarettes, uncomplicated; Z98.41 Cataract extraction status, right eye; Z98.42 Cataract extraction status, left eye; Z98.890 Other specified postprocedural states; Z91.81 History of falling; W19.XXXA Unspecified fall, initial encounter
CPT/HCPCS: 36415; 36416; 71045; 72192; 76000; 80048; 80053; 81001; 82607; 82746; 83735; 83930; 83935; 84100; 85025; 85610; 85730; C1713; C1769; J0131; J1100; J1885; J2001; J2060; J2270; J2405; J2704; J3010; J3411; J3480; J3490; J7050; S0028

== ENCOUNTER 2018-05-24 12:28 | Inpatient (IN) | payer MEDICARE, OTHER ==
[2018-05-24] MEDS ORDERED: Bisacodyl 10 MG SUPP PR PRN (13:53)
[2018-05-24] MEDS ORDERED: Milk Of Magnesia 30 ML UDCUP PO PRN (13:53)
[2018-05-24] MEDS ORDERED: Fentanyl 100 MCG/2 ML VIAL SLOW IVP PRN (13:53)
[2018-05-24] MEDS ORDERED: traMADol HCl 50 MG TAB PO PRN (13:53)
[2018-05-24] MEDS ORDERED: Fleet Enema 133 ML BOT PR PRN (13:53)
[2018-05-24] MEDS ORDERED: Ondansetron ODT 4 MG TAB PO PRN (13:53)
[2018-05-24 14:39] VITALS: BMI 20.9
[2018-05-24 14:50] LABS: #Eosinphils 0.2 thou/uL (0.0-0.7); #Lymphocytes 1.8 thou/uL (1.20-3.40); #Monocytes 1.2 thou/uL (0.11-0.59); #Neutrophils 8.2 thou/uL (1.40-6.50); %Basophils 0.2 % (0.0-1.0); %Eosinophils 1.9 % (0.0-10.0); %Lymphocytes 16.1 % (21.0-51.0); %Neutrophils 71.7 % (42.0-75.0); Hemoglobin 11.7 g/dL (14.0-18.0); Mean Corpuscular HGB CONC 34.4 g/dL (32.0-36.0); Mean Corpuscular Hemoglobin 34.7 pg (27.0-31.0); Mean Platelet Volume 6.4 fL (7.4-10.4); Platelet Count 270 thou/uL (130-400); RBC Distribution Width 11.4 % (11.5-14.5); Red Blood Cell (RBC) Count 3.36 mill/uL (4.70-6.10); White Blood Cell (WBC) Count 11.4 thou/uL (4.8-10.8)
[2018-05-24 14:55] LABS: INR-International Normal Ratio 0.9; Prothrombin Time 12.6 SEC (12.0-14.7)
[2018-05-24 15:21] LABS: ALT (SGPT) 13 U/L (8-55); AST (SGOT) 16 U/L (5-34); Albumin 3.6 g/dL (3.4-4.8); Alkaline Phosphatase 90 U/L (40-150); Anion Gap 15 mmol/L (10-20); BUN (Urea Nitrogen) 16 mg/dL (8.4-25.7); Bilirubin, Total 0.7 mg/dL (0.2-1.2); Calc. Creatinine Clearance 75 mL/min (70-130); Calcium 9.6 mg/dL (7.8-10.44); Carbon Dioxide 25 mmol/L (23-31); Chloride 89 mmol/L (98-107); Estimated GFR-MDRD 77; Globulin 2.7 g/dL (2.4-3.5); Glucose 99 mg/dL (80-115); Potassium 4.5 mmol/L (3.5-5.1); Protein, Total 6.3 g/dL (5.8-8.1); Sodium 124 mmol/L (136-145)
--- NOTE | 2018-05-24 15:34 | RAD ---
2 VIEWS RIGHT FEMUR: Date: 05/24/18 COMPARISON: 04/22/18. HISTORY: Right subtrochanteric femur fracture. FINDINGS: Two views of the right femur show three screws extending through the femoral neck. There is a fractur e of the femur extending parallel to the screws an inferior to the screws in the intertrochanteric re gion. The screws do not appear completely affixed to the greater trochanter and may have backed out s lightly. No fracture of the distal femur is seen. Vascular calcifications are present. IMPRESSION: There is a fracture just distal to the three screws seen on the prior examination, extending from the lesser trochanter just inferior to the screws involving the lateral aspect of the cortex. These scre ws do not appear to transverse this fracture. POS: [facility]
[2018-05-24] MEDS: traMADol HCl 50 MG TAB PO PRN (19:14)
[2018-05-24] MEDS ORDERED: Melatonin 3 MG TAB PO PRN (20:45)
[2018-05-24] MEDS ORDERED: Prevnar 13-Val Conj/PF 0.5 ML SYRINGE IM ONE (21:00)
[2018-05-24] MEDS: Docusate 100 MG CAP PO SCH (21:22)
[2018-05-24] MEDS: Ibuprofen 800 MG TAB PO SCH (21:22)
[2018-05-24] MEDS: Nicotine 14 MG PATCH TOP SCH (21:22)
[2018-05-24] MEDS: D5 0.9% NS w/ 20 mEq KCl 1,000 ML IV SCH (22:28)
[2018-05-25] MEDS: cloNIDine 0.3 MG TAB PO SCH ×6 (00:32→20:59)
[2018-05-25] MEDS: Ibuprofen 800 MG TAB PO SCH (06:24)
[2018-05-25] MEDS: traMADol HCl 50 MG TAB PO PRN ×3 (06:26→20:59)
[2018-05-25] MEDS ORDERED: Acetaminophen 500 MG TAB PO PRN (07:37)
[2018-05-25] MEDS ORDERED: Calcium Carbonate 500 MG ChewTAB PO PRN (07:37)
[2018-05-25] MEDS ORDERED: Diabetic Tussin 200 MG/10 ML UDCUP PO PRN (07:37)
[2018-05-25] MEDS ORDERED: Ondansetron ODT 4 MG TAB PO PRN (07:37)
[2018-05-25] MEDS ORDERED: Benzonatate 100 MG CAP PO PRN (07:37)
[2018-05-25] MEDS ORDERED: hydrALAZINE 20 MG/ML VIAL SLOW IVP PRN (07:37)
[2018-05-25] MEDS ORDERED: Sodium Chloride 0.65% Nasal 44 ML BOT EA NARE PRN (07:37)
[2018-05-25] MEDS ORDERED: Lorazepam 2 MG/ML VIAL SLOW IVP PRN (07:38)
[2018-05-25] MEDS: chlordiazePOXIDE HCl 25 MG CAP PO SCH (08:33)
[2018-05-25] MEDS: Thiamine 100 MG TAB PO SCH (08:38)
[2018-05-25] MEDS: Senokot S 8.6-50 MG TAB PO SCH (08:38)
[2018-05-25] MEDS: Docusate 100 MG CAP PO SCH ×2 (08:38→21:00)
[2018-05-25] MEDS: Folic Acid 1 MG TAB PO SCH (08:38)
[2018-05-25] MEDS: D5 0.9% NS w/ 20 mEq KCl 1,000 ML IV SCH ×2 (09:18→21:00)
[2018-05-25] MEDS ORDERED: Sodium Chloride 0.9% 100 ML ONE (09:29)
[2018-05-25] MEDS ORDERED: Tranexamic Acid 1,000 MG/10 ML VIAL ONE (09:29)
[2018-05-25] MEDS ORDERED: Fentanyl 100 MCG/2 ML VIAL ONE (10:35)
--- NOTE | 2018-05-25 12:33 | RAD ---
RIGHT FEMUR RADIOGRAPHS 2 VIEWS: DATE: 05/25/2018. PROVIDED CLINICAL HISTORY: ORIF. FINDINGS: Two spot fluoroscopic views of the right femur demonstrate interval postoperative changes of antegrad e intramedullary femoral nail placement with interlocking proximal and distal screws transfixing prev iously described subtrochanteric right proximal femoral fracture, with subsequent improved alignment. IMPRESSION: As above. POS: [facility]
[2018-05-25] MEDS ORDERED: Acetaminophen 325 MG TAB PO PRN (12:34)
[2018-05-25] MEDS ORDERED: Bisacodyl 10 MG SUPP PR PRN (12:34)
[2018-05-25] MEDS ORDERED: Ondansetron PF 4 MG/2 ML Vial IVP PRN (12:34)
[2018-05-25] MEDS ORDERED: Fleet Enema 133 ML BOT PR PRN (12:34)
[2018-05-25] MEDS ORDERED: Cepastat Lozenges 1 LOZ PO PRN (12:34)
[2018-05-25] MEDS ORDERED: HYDROcodone/Acetaminophen 5/325 mg Tablet PO PRN (12:34)
[2018-05-25] MEDS: CEFAZOLIN 2 GM in Premix Bag 1 BAG IVPB SCH ×2 (14:29→23:05)
[2018-05-25] MEDS ORDERED: Rocuronium Bromide 10 MG/ML (10ML VIAL) ONE (14:33)
[2018-05-25] MEDS ORDERED: Glycopyrrolate 0.2 MG/ML 5 ML SYRINGE ONE (14:33)
[2018-05-25] MEDS ORDERED: PROPOFOL 200 MG/20 ML VIAL ONE (14:33)
[2018-05-25] MEDS ORDERED: Lidocaine 1% PF 5 ML VIAL ONE (14:33)
[2018-05-25] MEDS ORDERED: Ondansetron PF 4 MG/2 ML Vial ONE (14:33)
[2018-05-25] MEDS ORDERED: Ketorolac Tromethamine 30 MG/ML VIAL ONE (14:33)
[2018-05-25 14:48] LABS: Sodium 130 mmol/L (136-145)
--- NOTE | 2018-05-25 16:24 | PDOC.PN ---
- Subjective Encounter Start Date: 05/25/18 Encounter Start Time: 16:22 Subjective: s/p surgical correction for R femur fracture today -: care discussed w pt & family at bedside.mechanical fall -: has quit drinking ETOH altogether - Objective MAR Reviewed: Yes Vital Signs & Weight: Vital Signs (12 hours) Temp Pulse Resp BP BP Pulse Ox 05/25/18 14:28 144/76 H 05/25/18 12:40 97.3 F L 63 20 181/84 H 100 05/25/18 08:38 151/74 H 05/25/18 08:33 98 05/25/18 07:50 98.1 F 69 16 123/61 98 05/25/18 06:24 151/74 H 05/25/18 06:23 98.2 F 86 16 151/74 H 97 Weight Weight 155 lb I&O: 05/24/18 05/25/18 05/26/18 06:59 06:59 06:59 Intake Total 1850 Output Total 1125 Balance 725 Result Diagrams: 05/24/18 14:40 05/25/18 14:32 Additional Labs: Laboratory Tests 04/29/18 05/02/18 05/24/18 06:00 02:00 14:40 Hgb 12.1 L 11.1 L Sodium 124 L 05/24/18 05/25/18 14:40 14:32 Hgb 11.7 L Sodium 130 L Phys Exam - Physical Examination Constitutional: NAD HEENT: PERRLA, moist MMs, sclera anicteric, oral pharynx no lesions Neck: no nodes, no JVD, supple, full ROM Respiratory: no wheezing, no rales, no rhonchi, clear to auscultation bilateral Cardiovascular: RRR, no significant murmur, no rub Gastrointestinal: soft, non-tender, no distention, positive bowel sounds Musculoskeletal: no edema, pulses present Neurological: non-focal, normal sensation, moves all 4 limbs Psychiatric: normal affect, A&O x 3 Skin: no rash Dx/Plan (1) HTN (hypertension) Code(s): I10 - ESSENTIAL (PRIMARY) HYPERTENSION Status: Chronic (2) Femur fracture, right Code(s): S72.91XA - UNSP FRACTURE OF RIGHT FEMUR, INIT FOR CLOS FX Status: Acute Qualifiers: Encounter type: initial encounter Fracture type: closed Fracture morphology: transverse Fracture alignment: nondisplaced (3) Tobacco abuse Code(s): Z72.0 - TOBACCO USE Status: Chronic - Plan plan discussed w/ family, PT/OT, incentive spirometry, DVT proph w/lovenox, DVT proph w/SCDs hemodynamicaly stable.restart home meds. -: am labs -: add nicotine patch -: add prn meds includin antihypertensives -: Im team will follow. HD stable * . Review of Systems - Review of Systems Constitutional: negative: fever, chills, sweats, weakness, malaise, other ENT: negative: Ear Pain, Ear Discharge, Nose Pain, Nose Discharge, Nose Congestion, Mouth Pain, Mouth Swelling, Throat Pain, Throat Swelling, Other Respiratory: negative: Cough, Dry, Shortness of Breath, Hemoptysis, SOB with Excertion, Pleuritic Pain, Sputum, Wheezing Cardiovascular: negative: chest pain, palpitations, orthopnea, paroxysmal nocturnal dyspnea, edema, light headedness, other Gastrointestinal: negative: Nausea, Vomiting, Abdominal Pain, Diarrhea, Constipation, Melena, Hematochezia, Other Genitourinary: negative: Dysuria, Frequency, Incontinence, Hematuria, Retention , Other Musculoskeletal: negative: Neck Pain, Shoulder Pain, Arm Pain, Back Pain, Hand Pain, Leg Pain, Foot Pain, Other Neurological: negative: Weakness, Numbness, Incoordination, Change in Speech, Confusion, Seizures, Other - Medications/Allergies Allergies/Adverse Reactions: Allergies Allergy/AdvReac Type Severity Reaction Status Date / Time No Known Allergies Allergy Verified 03/08/16 15:15 Medications: Current Medications Acetaminophen (Tylenol) 650 mg PO Q4H PRN PRN Reason: QUIÑONES/T> 101F/Mild Pain (1-3) Hydrocodone Bitart/Acetaminophen ([place] 5/325) 2 tab PO Q4H PRN PRN Reason: Moderate Pain (4-6) Hydrocodone Bitart/Acetaminophen ([place] 5/325) 1 tab PO Q4H PRN PRN Reason: Mild Pain (1-3) Benzonatate (Tessalon) 100 mg PO Q6H PRN PRN Reason: Cough Bisacodyl (Dulcolax) 10 mg [place] DAILYPRN PRN PRN Reason: Constipation Calcium Carbonate (Tums) 1,000 mg PO Q4H PRN PRN Reason: Heartburn or Indigestion Chlordiazepoxide HCl (Librium) 25 mg PO DAILY [facility] Last Admin: 05/25/18 08:33 Dose: 25 mg Clonidine (Catapres) 0.3 mg PO 0300,0900,1500,2100 [facility] Last Admin: 05/25/18 14:28 Dose: 0.3 mg Docusate Sodium (Colace) 100 mg PO BID [facility] Last Admin: 05/25/18 08:38 Dose: Not Given Enoxaparin Sodium (Lovenox) 30 mg SC 0900 [facility] Fentanyl (Sublimaze) 50 mcg SLOW IVP Q20M PRN PRN Reason: Severe Pain (7-10) Ferrous Gluconate (Fergon) 324 mg PO BID [facility] Folic Acid (Folvite) 1 mg PO DAILY [facility] Last Admin: 05/25/18 08:38 Dose: Not Given Guaifenesin (Robitussin Sf) 200 mg PO Q4H PRN PRN Reason: Cough Hydralazine HCl (Apresoline) 10 mg SLOW IVP Q4H PRN PRN Reason: SBP > 180 and HR < 70 Potassium Chloride/Dextrose/Sod Cl (D5 0.9% Ns W/ 20 Meq Kcl) 1,000 mls @ 100 mls/hr IV .Q10H [facility] Last Admin: 05/25/18 09:18 Dose: Not Given Cefazolin Sodium/Dextrose 2 gm (/ Device) 50 mls @ 100 mls/hr IVPB Q8H [facility] Stop: 05/25/18 22:29 Last Admin: 05/25/18 14:29 Dose: 50 mls Iron/Minerals/Multivitamins (Theragran M) 1 tab PO DAILY [facility] Lorazepam (Ativan) 1 mg SLOW IVP Q4H PRN PRN Reason: Anxiety/Agitation Magnesium Hydroxide (Milk Of Magnesium) 30 ml PO DAILYPRN PRN PRN Reason: Constipation Melatonin (Melatonin) 6 mg PO HS PRN PRN Reason: Insomnia Last Admin: 05/24/18 22:24 Dose: 6 mg Nicotine (Nicoderm Patch) 14 mg TOP Q24HR [facility] Last Admin: 05/24/18 21:22 Dose: 14 mg Ondansetron HCl (Zofran Odt) 4 mg PO Q6H PRN PRN Reason: Nausea/Vomiting Ondansetron HCl (Zofran) 4 mg IVP Q6H PRN PRN Reason: Nausea/Vomiting Pantoprazole Sodium (Protonix) 20 mg PO DAILY [facility] Last Admin: 05/25/18 08:38 Dose: Not Given Senna/Docusate Sodium (Senokot S) 1 tab PO DAILY [facility] Last Admin: 05/25/18 08:38 Dose: Not Given Sertraline HCl (Zoloft) 50 mg PO DAILY [facility] Last Admin: 05/25/18 08:38 Dose: Not Given Sodium Biphosphate/Sodium Phosphate (Fleet Enema) 133 ml [place] DAILYPRN PRN PRN Reason: Constipation Sodium Biphosphate/Sodium Phosphate (Fleet Enema) 133 ml [place] DAILYPRN PRN PRN Reason: Constipation Sodium Chloride ([place] Nasal [place] 0.65%) 0 ml EA NARE QIDPRN PRN PRN Reason: Nasal Congestion Sodium Chloride (Flush - Normal Saline) 10 ml IVF PRN PRN PRN Reason: Saline Flush Thiamine HCl (Thiamine) 100 mg PO DAILY [facility] Last Admin: 05/25/18 08:38 Dose: Not Given Throat Lozenges (Cepastat Lozenges) 1 callum PO Q2H PRN PRN Reason: Sore Throat Tramadol HCl (Ultram) 50 mg PO Q6H PRN PRN Reason: Mild Pain (1-3) Tramadol HCl (Ultram) 100 mg PO Q6H PRN PRN Reason: Moderate Pain (4-6) Last Admin: 05/25/18 14:27 Dose: 100 mg
[2018-05-25] MEDS: Nicotine 14 MG PATCH TOP SCH (20:58)
[2018-05-25] MEDS: Ferrous Gluconate 324 MG TAB PO SCH (20:59)
[2018-05-25] MEDS: Famotidine 20 MG TAB PO SCH (20:59)
[2018-05-26] MEDS: traMADol HCl 50 MG TAB PO PRN ×2 (03:32→15:55)
[2018-05-26] MEDS: cloNIDine 0.3 MG TAB PO SCH ×4 (03:32→20:49)
[2018-05-26] MEDS: D5 0.9% NS w/ 20 mEq KCl 1,000 ML IV SCH ×2 (04:27→15:00)
[2018-05-26] MEDS: HYDROcodone/Acetaminophen 5/325 mg Tablet PO PRN (06:26)
[2018-05-26] MEDS: Thiamine 100 MG TAB PO SCH (08:08)
[2018-05-26] MEDS: Senokot S 8.6-50 MG TAB PO SCH (08:08)
[2018-05-26] MEDS: Docusate 100 MG CAP PO SCH ×2 (08:08→20:50)
[2018-05-26] MEDS: Folic Acid 1 MG TAB PO SCH (08:08)
[2018-05-26] MEDS: Enoxaparin Sodium 30 MG/0.3 ML SYRINGE SC SCH (08:09)
[2018-05-26] MEDS: Ferrous Gluconate 324 MG TAB PO SCH ×2 (08:09→20:50)
[2018-05-26] MEDS: Famotidine 20 MG TAB PO SCH ×2 (08:09→20:50)
[2018-05-26] MEDS: Multivitamin W/ Minerals 1 TAB PO SCH (08:09)
[2018-05-26] MEDS: chlordiazePOXIDE HCl 25 MG CAP PO SCH (08:09)
[2018-05-26 08:21] LABS: Hemoglobin 9.4 g/dL (14.0-18.0); Mean Corpuscular HGB CONC 34.3 g/dL (32.0-36.0); Mean Corpuscular Hemoglobin 34.7 pg (27.0-31.0); Mean Platelet Volume 6.8 fL (7.4-10.4); Platelet Count 288 thou/uL (130-400); RBC Distribution Width 11.1 % (11.5-14.5); Red Blood Cell (RBC) Count 2.71 mill/uL (4.70-6.10); White Blood Cell (WBC) Count 9.2 thou/uL (4.8-10.8)
[2018-05-26 08:39] LABS: Anion Gap 10 mmol/L (10-20); BUN (Urea Nitrogen) 10 mg/dL (8.4-25.7); Calc. Creatinine Clearance 96 mL/min (70-130); Calcium 8.9 mg/dL (7.8-10.44); Carbon Dioxide 30 mmol/L (23-31); Chloride 92 mmol/L (98-107); Estimated GFR-MDRD Greater than 90; Glucose 91 mg/dL (80-115); Potassium 4.4 mmol/L (3.5-5.1); Sodium 128 mmol/L (136-145)
--- NOTE | 2018-05-26 13:29 | PDOC.PN ---
- Subjective Encounter Start Date: 05/26/18 Encounter Start Time: 13:27 Subjective: feels well. no new complaints -: worked w Pt - Objective MAR Reviewed: Yes Vital Signs & Weight: Vital Signs (12 hours) Temp Pulse Resp BP BP Pulse Ox 05/26/18 11:37 98.2 F 87 12 95/58 L 96 05/26/18 08:08 117/61 96 05/26/18 07:36 97.7 F 82 16 117/61 96 05/26/18 04:00 98.3 F 93 20 142/76 H 96 05/26/18 03:32 142/76 H Weight Weight 155 lb I&O: 05/25/18 05/26/18 05/27/18 06:59 06:59 06:59 Intake Total 1850 1725 Output Total 1125 1600 Balance 725 125 Result Diagrams: 05/26/18 07:43 05/26/18 07:43 Phys Exam - Physical Examination Constitutional: NAD HEENT: PERRLA, moist MMs, sclera anicteric, oral pharynx no lesions Neck: no nodes, no JVD, supple, full ROM Respiratory: no wheezing, no rales, no rhonchi, clear to auscultation bilateral Cardiovascular: RRR, no significant murmur Gastrointestinal: soft, non-tender, no distention, positive bowel sounds Musculoskeletal: no edema, pulses present Neurological: non-focal, normal sensation, moves all 4 limbs Psychiatric: normal affect, A&O x 3 Skin: no rash Dx/Plan (1) Hyponatremia Code(s): E87.1 - HYPO-OSMOLALITY AND HYPONATREMIA Status: Acute Comment: Chronic but worse .asymptomatic. (2) HTN (hypertension) Code(s): I10 - ESSENTIAL (PRIMARY) HYPERTENSION Status: Chronic (3) Femur fracture, right Code(s): S72.91XA - UNSP FRACTURE OF RIGHT FEMUR, INIT FOR CLOS FX Status: Acute Qualifiers: Encounter type: initial encounter Fracture type: closed Fracture morphology: transverse Fracture alignment: nondisplaced (4) Tobacco abuse Code(s): Z72.0 - TOBACCO USE Status: Chronic - Plan DVT proph w/SCDs restrict free water and recheck sodium later/asymptomatic & suspcet chronic -: HD stable.cont care.home meds a sbelow -: IM team will follow * . Review of Systems - Review of Systems Constitutional: negative: fever, chills, sweats, weakness, malaise, other ENT: negative: Ear Pain, Ear Discharge, Nose Pain, Nose Discharge, Nose Congestion, Mouth Pain, Mouth Swelling, Throat Pain, Throat Swelling, Other Respiratory: negative: Cough, Dry, Shortness of Breath, Hemoptysis, SOB with Excertion, Pleuritic Pain, Sputum, Wheezing Cardiovascular: negative: chest pain, palpitations, orthopnea, paroxysmal nocturnal dyspnea, edema, light headedness, other Gastrointestinal: negative: Nausea, Vomiting, Abdominal Pain, Diarrhea, Constipation, Melena, Hematochezia, Other Genitourinary: negative: Dysuria, Frequency, Incontinence, Hematuria, Retention , Other Neurological: negative: Weakness, Numbness, Incoordination, Change in Speech, Confusion, Seizures, Other - Medications/Allergies Allergies/Adverse Reactions: Allergies Allergy/AdvReac Type Severity Reaction Status Date / Time No Known Allergies Allergy Verified 03/08/16 15:15 Medications: Current Medications Acetaminophen (Tylenol) 650 mg PO Q4H PRN PRN Reason: QUIÑONES/T> 101F/Mild Pain (1-3) Hydrocodone Bitart/Acetaminophen ([place] 5/325) 2 tab PO Q4H PRN PRN Reason: Moderate Pain (4-6) Last Admin: 05/26/18 06:26 Dose: 2 tab Hydrocodone Bitart/Acetaminophen ([place] 5/325) 1 tab PO Q4H PRN PRN Reason: Mild Pain (1-3) Benzonatate (Tessalon) 100 mg PO Q6H PRN PRN Reason: Cough Bisacodyl (Dulcolax) 10 mg [place] DAILYPRN PRN PRN Reason: Constipation Calcium Carbonate (Tums) 1,000 mg PO Q4H PRN PRN Reason: Heartburn or Indigestion Chlordiazepoxide HCl (Librium) 25 mg PO DAILY [facility] Last Admin: 05/26/18 08:09 Dose: 25 mg Clonidine (Catapres) 0.3 mg PO 0300,0900,1500,2100 [facility] Last Admin: 05/26/18 08:08 Dose: 0.3 mg Docusate Sodium (Colace) 100 mg PO BID [facility] Last Admin: 05/26/18 08:08 Dose: 100 mg Enoxaparin Sodium (Lovenox) 30 mg SC 0900 [facility] Last Admin: 05/26/18 08:09 Dose: 30 mg Famotidine (Pepcid) 20 mg PO BID [facility] Last Admin: 05/26/18 08:09 Dose: 20 mg Fentanyl (Sublimaze) 50 mcg SLOW IVP Q20M PRN PRN Reason: Severe Pain (7-10) Ferrous Gluconate (Fergon) 324 mg PO BID [facility] Last Admin: 05/26/18 08:09 Dose: 324 mg Folic Acid (Folvite) 1 mg PO DAILY [facility] Last Admin: 05/26/18 08:08 Dose: 1 mg Guaifenesin (Robitussin Sf) 200 mg PO Q4H PRN PRN Reason: Cough Hydralazine HCl (Apresoline) 10 mg SLOW IVP Q4H PRN PRN Reason: SBP > 180 and HR < 70 Potassium Chloride/Dextrose/Sod Cl (D5 0.9% Ns W/ 20 Meq Kcl) 1,000 mls @ 100 mls/hr IV .Q10H [facility] Last Admin: 05/26/18 04:27 Dose: Not Given Iron/Minerals/Multivitamins (Theragran M) 1 tab PO DAILY [facility] Last Admin: 05/26/18 08:09 Dose: 1 tab Lorazepam (Ativan) 1 mg SLOW IVP Q4H PRN PRN Reason: Anxiety/Agitation Magnesium Hydroxide (Milk Of Magnesium) 30 ml PO DAILYPRN PRN PRN Reason: Constipation Melatonin (Melatonin) 6 mg PO HS PRN PRN Reason: Insomnia Last Admin: 05/24/18 22:24 Dose: 6 mg Nicotine (Nicoderm Patch) 14 mg TOP Q24HR [facility] Last Admin: 05/25/18 20:58 Dose: 14 mg Ondansetron HCl (Zofran Odt) 4 mg PO Q6H PRN PRN Reason: Nausea/Vomiting Ondansetron HCl (Zofran) 4 mg IVP Q6H PRN PRN Reason: Nausea/Vomiting Pantoprazole Sodium (Protonix) 20 mg PO DAILY [facility] Last Admin: 05/26/18 08:09 Dose: 20 mg Senna/Docusate Sodium (Senokot S) 1 tab PO DAILY [facility] Last Admin: 05/26/18 08:08 Dose: 1 tab Sertraline HCl (Zoloft) 50 mg PO DAILY [facility] Last Admin: 05/26/18 08:09 Dose: 50 mg Sodium Biphosphate/Sodium Phosphate (Fleet Enema) 133 ml [place] DAILYPRN PRN PRN Reason: Constipation Sodium Biphosphate/Sodium Phosphate (Fleet Enema) 133 ml [place] DAILYPRN PRN PRN Reason: Constipation Sodium Chloride ([place] Nasal [place] 0.65%) 0 ml EA NARE QIDPRN PRN PRN Reason: Nasal Congestion Sodium Chloride (Flush - Normal Saline) 10 ml IVF PRN PRN PRN Reason: Saline Flush Thiamine HCl (Thiamine) 100 mg PO DAILY [facility] Last Admin: 05/26/18 08:08 Dose: 100 mg Throat Lozenges (Cepastat Lozenges) 1 callum PO Q2H PRN PRN Reason: Sore Throat Tramadol HCl (Ultram) 50 mg PO Q6H PRN PRN Reason: Mild Pain (1-3) Tramadol HCl (Ultram) 100 mg PO Q6H PRN PRN Reason: Moderate Pain (4-6) Last Admin: 05/26/18 03:32 Dose: 100 mg
[2018-05-26 16:15] LABS: Sodium 127 mmol/L (136-145)
[2018-05-26] MEDS: Nicotine 14 MG PATCH TOP SCH (20:49)
[2018-05-27] MEDS: D5 0.9% NS w/ 20 mEq KCl 1,000 ML IV SCH ×3 (03:47→22:52)
[2018-05-27] MEDS: cloNIDine 0.3 MG TAB PO SCH ×4 (03:51→20:15)
[2018-05-27] MEDS: Multivitamin W/ Minerals 1 TAB PO SCH (07:59)
[2018-05-27] MEDS: Ferrous Gluconate 324 MG TAB PO SCH ×2 (07:59→20:13)
[2018-05-27] MEDS: Senokot S 8.6-50 MG TAB PO SCH (07:59)
[2018-05-27] MEDS: Enoxaparin Sodium 30 MG/0.3 ML SYRINGE SC SCH (07:59)
[2018-05-27] MEDS: Docusate 100 MG CAP PO SCH ×2 (07:59→20:15)
[2018-05-27] MEDS: Famotidine 20 MG TAB PO SCH ×2 (07:59→20:15)
[2018-05-27] MEDS: chlordiazePOXIDE HCl 25 MG CAP PO SCH (07:59)
[2018-05-27] MEDS: Folic Acid 1 MG TAB PO SCH (08:00)
[2018-05-27] MEDS: Thiamine 100 MG TAB PO SCH (08:00)
[2018-05-27] MEDS: traMADol HCl 50 MG TAB PO PRN ×2 (08:00→14:52)
[2018-05-27] MEDS: HYDROcodone/Acetaminophen 5/325 mg Tablet PO PRN ×2 (10:25→20:14)
[2018-05-27 11:01] LABS: Mean Corpuscular HGB CONC 34.1 g/dL (32.0-36.0); Mean Corpuscular Hemoglobin 33.6 pg (27.0-31.0); Mean Corpuscular Volume 98.6 fL (78.0-98.0); Mean Platelet Volume 6.4 fL (7.4-10.4); Platelet Count 316 thou/uL (130-400); Red Blood Cell (RBC) Count 2.68 mill/uL (4.70-6.10); White Blood Cell (WBC) Count 8.1 thou/uL (4.8-10.8)
[2018-05-27 11:21] LABS: Anion Gap 13 mmol/L (10-20); BUN (Urea Nitrogen) 13 mg/dL (8.4-25.7); Calc. Creatinine Clearance 89 mL/min (70-130); Carbon Dioxide 27 mmol/L (23-31); Chloride 93 mmol/L (98-107); Estimated GFR-MDRD Greater than 90; Glucose 95 mg/dL (80-115); Potassium 4.3 mmol/L (3.5-5.1); Sodium 129 mmol/L (136-145)
--- NOTE | 2018-05-27 11:42 | OP ---
DATE OF PROCEDURE: 05/25/2018 PREOPERATIVE DIAGNOSES: 1. A right subtrochanteric/intertrochanteric reverse obliquity fracture. 2. A femoral neck fracture status post open reduction and internal fixation. POSTOPERATIVE DIAGNOSES: 1. A right subtrochanteric/intertrochanteric reverse obliquity fracture. 2. A femoral neck fracture status post open reduction and internal fixation. PROCEDURE PERFORMED: 1. Intramedullary nailing of subtrochanteric/intertrochanteric femur fracture. 2. Revision percutaneous screw fixation of femoral neck fracture. 3. Hardware removal. RECRUITER COORDINATOR: Damir Hudson PA-C. ANESTHESIA: [place]. The patient received a general. ESTIMATED BLOOD LOSS: 70 mL. TOURNIQUET TIME: None. IMPLANTS: Synthes TFNA 11 x 130 degree x 400 mm right TFNA nail with a Synthes 100 mm TFNA compression screw, a 5 mm distal locking screw, and a 7.35 x 95 mm washer and titanium screw. ANTIBIOTICS: Ancef 2 g, TXA 1 g. COMPLICATIONS: None. HISTORY OF PRESENT ILLNESS: Mr. Azul is a 63-year-old male who about 5 weeks ago fell and has a history of alcoholism, heavy smoker. The patient has history of previous falls and injuries, broke his right hip. When he broke his right hip, there is a nondisplaced fracture which underwent percutaneous screw fixation. The patient was followed postoperatively and noted to maintain stability until 2 days ago when he was jumping and picking up and trying to turn a light up above his refrigerator and the patient states he jumped and then kind of fell off on his right leg and felt immediate pain. The patient came into clinic, difficulty ambulating and x- rayed his right hip, which showed a subtrochanteric/intertrochanteric reverse obliquity proximal femur fracture. Actually looks below the screws, it is unsure if the screws were the potential pin site or starter or if it is secondary to just a stress at the site of the fracture from the jump into foot injury. The patient understood that this is again a secondary hip fracture and this is complicated and he likely will have to potentially have all this hardware removed and have a calcar-replacing total hip arthroplasty. The patient's outlook is poor given his medical history. He states he has stopped drinking, but he still continues to smoke, which we discussed smoking cessation. I discussed the risks and benefits of surgery to include pain, scar, bleeding, infection, damage to vital structures, decreased range of motion and strength, nonunion, fracture above and below, failure of healing, need for further surgeries, needed total hip, loss of life, limb, blood clot. The patient understood these risks and benefits and would like to proceed. DESCRIPTION OF PROCEDURE: Time-out was performed designating the patient's right lower extremity as the operative site based on site, consents, marking. After time-out, the patient's extremity was prepped, was placed in traction on the fracture table, was prepped and draped in sterile fashion. We made an incision down to get the 3 previous stainless steel screws. We placed a guidewire in the most anterior one to help us with a derotational screw of the femoral neck. Removed all screws and washers moved up to our trochanter, made a secondary incision proximally to expose the patient's tip of the trochanter down through the IT band and splitting the medius and minimus. We came down on top of the trochanter, started our guide pin on AP and lateral radiographs. Opening reamer opened up the canal, placed the guide pin down the length of the femur, used a finger to help with placement, so it was [id number] on AP and more posterior. We then reamed up to a 12, measured and placed a 11 mm nail into position. We were slightly anterior, but otherwise looked good on radiographs, used our guide to perfectly place our head posterior and inferior for compression screw through the nail. We placed on AP and lateral radiographs leaving the previous kwires in place, to help with some derotation and maintain stability. We then drilled and placed a 100 mm screw proximally. We threaded. We did not compress the fracture. We stabilized into position. We then placed our gate to allow for a little bit allow for compression as needed. We then placed our K-wire, replaced a titanium 95 mm screw over the derotation and completely stabilized our femoral neck fracture. We then moved distally, opened the skin and placed a 5.0 screw distally. We washed and closed our skin with 0, 2.0 vicryl and skin kaya. ASSESSMENT AND PLAN: The patient will be touchdown weightbearing for the next 6 weeks. I will see him back in the morning. The patient will receive 24 hours of antibiotics, will be followed by medicine house. The patient's outlook is guarded given his medical history. We will continue to follow him. Job ID: [id number]
--- NOTE | 2018-05-27 14:28 | PDOC.PN ---
- Subjective Encounter Start Date: 05/27/18 Encounter Start Time: 14:27 Subjective: feels weak and tired today.on & off pain in operated hip -: no N/V/D - Objective MAR Reviewed: Yes Vital Signs & Weight: Vital Signs (12 hours) Temp Pulse Resp BP BP BP Pulse Ox 05/27/18 13:36 125/66 05/27/18 11:34 98.1 F 66 18 90/53 L 97 05/27/18 08:00 125/66 05/27/18 07:39 98.2 F 84 18 125/66 95 05/27/18 04:34 98.0 F 81 16 127/68 98 05/27/18 03:51 136/74 Weight Weight 155 lb I&O: 05/26/18 05/27/18 05/28/18 06:59 06:59 06:59 Intake Total 1725 1000 Output Total 1600 1250 Balance 125 -250 Result Diagrams: 05/27/18 10:34 05/27/18 10:34 Additional Labs: Laboratory Tests 05/24/18 05/25/18 05/26/18 14:40 14:32 07:43 Sodium 124 L 130 L 128 L 05/26/18 05/27/18 15:50 10:34 Sodium 127 L 129 L Phys Exam - Physical Examination Constitutional: NAD tired looking HEENT: PERRLA, moist MMs, sclera anicteric, oral pharynx no lesions Neck: no nodes, no JVD, supple, full ROM Respiratory: no wheezing, no rales, no rhonchi, clear to auscultation bilateral Cardiovascular: RRR, no significant murmur Gastrointestinal: soft, non-tender, no distention, positive bowel sounds Musculoskeletal: no edema, pulses present Neurological: non-focal, normal sensation, moves all 4 limbs Psychiatric: normal affect, A&O x 3 Skin: no rash Dx/Plan (1) Hyponatremia Code(s): E87.1 - HYPO-OSMOLALITY AND HYPONATREMIA Status: Acute Comment: Chronic but worse .asymptomatic.Improving with Fluid restriction.Monitor (2) HTN (hypertension) Code(s): I10 - ESSENTIAL (PRIMARY) HYPERTENSION Status: Chronic (3) Femur fracture, right Code(s): S72.91XA - UNSP FRACTURE OF RIGHT FEMUR, INIT FOR CLOS FX Status: Acute Qualifiers: Encounter type: initial encounter Fracture type: closed Fracture morphology: transverse Fracture alignment: nondisplaced (4) Tobacco abuse Code(s): Z72.0 - TOBACCO USE Status: Chronic - Plan PT/OT, DVT proph w/SCDs recheck sodium tomorrow .cont free water restriction -: cont home meds as below. -: Hd stable -: pain control per primary team.OT/PT per primary team for DC -: Dc home if sodium continues to improve tomorrow. * . Review of Systems - Review of Systems Constitutional: negative: fever, chills, sweats, weakness, malaise, other ENT: negative: Ear Pain, Ear Discharge, Nose Pain, Nose Discharge, Nose Congestion, Mouth Pain, Mouth Swelling, Throat Pain, Throat Swelling, Other Respiratory: negative: Cough, Dry, Shortness of Breath, Hemoptysis, SOB with Excertion, Pleuritic Pain, Sputum, Wheezing Cardiovascular: negative: chest pain, palpitations, orthopnea, paroxysmal nocturnal dyspnea, edema, light headedness, other Gastrointestinal: negative: Nausea, Vomiting, Abdominal Pain, Diarrhea, Constipation, Melena, Hematochezia, Other Genitourinary: negative: Dysuria, Frequency, Incontinence, Hematuria, Retention , Other Musculoskeletal: negative: Neck Pain, Shoulder Pain, Arm Pain, Back Pain, Hand Pain, Leg Pain, Foot Pain, Other Neurological: negative: Weakness, Numbness, Incoordination, Change in Speech, Confusion, Seizures, Other - Medications/Allergies Allergies/Adverse Reactions: Allergies Allergy/AdvReac Type Severity Reaction Status Date / Time No Known Allergies Allergy Verified 03/08/16 15:15 Medications: Current Medications Acetaminophen (Tylenol) 650 mg PO Q4H PRN PRN Reason: QUIÑONES/T> 101F/Mild Pain (1-3) Hydrocodone Bitart/Acetaminophen ([place] 5/325) 2 tab PO Q4H PRN PRN Reason: Moderate Pain (4-6) Last Admin: 05/27/18 10:25 Dose: 2 tab Hydrocodone Bitart/Acetaminophen ([place] 5/325) 1 tab PO Q4H PRN PRN Reason: Mild Pain (1-3) Benzonatate (Tessalon) 100 mg PO Q6H PRN PRN Reason: Cough Bisacodyl (Dulcolax) 10 mg DE DAILYPRN PRN PRN Reason: Constipation Calcium Carbonate (Tums) 1,000 mg PO Q4H PRN PRN Reason: Heartburn or Indigestion Chlordiazepoxide HCl (Librium) 25 mg PO DAILY [facility] Last Admin: 05/27/18 07:59 Dose: 25 mg Clonidine (Catapres) 0.3 mg PO 0300,0900,1500,2100 [facility] Last Admin: 05/27/18 13:36 Dose: Not Given Docusate Sodium (Colace) 100 mg PO BID [facility] Last Admin: 05/27/18 07:59 Dose: 100 mg Enoxaparin Sodium (Lovenox) 30 mg SC 0900 [facility] Last Admin: 05/27/18 07:59 Dose: 30 mg Famotidine (Pepcid) 20 mg PO BID [facility] Last Admin: 05/27/18 07:59 Dose: 20 mg Fentanyl (Sublimaze) 50 mcg SLOW IVP Q20M PRN PRN Reason: Severe Pain (7-10) Ferrous Gluconate (Fergon) 324 mg PO BID [facility] Last Admin: 05/27/18 07:59 Dose: 324 mg Folic Acid (Folvite) 1 mg PO DAILY [facility] Last Admin: 05/27/18 08:00 Dose: 1 mg Guaifenesin (Robitussin Sf) 200 mg PO Q4H PRN PRN Reason: Cough Hydralazine HCl (Apresoline) 10 mg SLOW IVP Q4H PRN PRN Reason: SBP > 180 and HR < 70 Potassium Chloride/Dextrose/Sod Cl (D5 0.9% Ns W/ 20 Meq Kcl) 1,000 mls @ 100 mls/hr IV .Q10H [facility] Last Admin: 05/27/18 08:04 Dose: Not Given Iron/Minerals/Multivitamins (Theragran M) 1 tab PO DAILY [facility] Last Admin: 05/27/18 07:59 Dose: 1 tab Lorazepam (Ativan) 1 mg SLOW IVP Q4H PRN PRN Reason: Anxiety/Agitation Magnesium Hydroxide (Milk Of Magnesium) 30 ml PO DAILYPRN PRN PRN Reason: Constipation Melatonin (Melatonin) 6 mg PO HS PRN PRN Reason: Insomnia Last Admin: 05/24/18 22:24 Dose: 6 mg Nicotine (Nicoderm Patch) 14 mg TOP Q24HR [facility] Last Admin: 05/26/18 20:49 Dose: 14 mg Ondansetron HCl (Zofran Odt) 4 mg PO Q6H PRN PRN Reason: Nausea/Vomiting Ondansetron HCl (Zofran) 4 mg IVP Q6H PRN PRN Reason: Nausea/Vomiting Pantoprazole Sodium (Protonix) 20 mg PO DAILY [facility] Last Admin: 05/27/18 08:00 Dose: 20 mg Senna/Docusate Sodium (Senokot S) 1 tab PO DAILY [facility] Last Admin: 05/27/18 07:59 Dose: 1 tab Sertraline HCl (Zoloft) 50 mg PO DAILY [facility] Last Admin: 05/27/18 07:59 Dose: 50 mg Sodium Biphosphate/Sodium Phosphate (Fleet Enema) 133 ml DE DAILYPRN PRN PRN Reason: Constipation Sodium Biphosphate/Sodium Phosphate (Fleet Enema) 133 ml DE DAILYPRN PRN PRN Reason: Constipation Sodium Chloride ([place] Nasal [place] 0.65%) 0 ml EA NARE QIDPRN PRN PRN Reason: Nasal Congestion Sodium Chloride (Flush - Normal Saline) 10 ml IVF PRN PRN PRN Reason: Saline Flush Thiamine HCl (Thiamine) 100 mg PO DAILY [facility] Last Admin: 05/27/18 08:00 Dose: 100 mg Throat Lozenges (Cepastat Lozenges) 1 callum PO Q2H PRN PRN Reason: Sore Throat Tramadol HCl (Ultram) 50 mg PO Q6H PRN PRN Reason: Mild Pain (1-3) Tramadol HCl (Ultram) 100 mg PO Q6H PRN PRN Reason: Moderate Pain (4-6) Last Admin: 05/27/18 08:00 Dose: 100 mg
--- NOTE | 2018-05-27 17:39 | EKG ---
Test Reason : PREOP Blood Pressure : / mmHG Vent. Rate : 070 BPM Atrial Rate : 070 BPM P-R Int : 188 ms QRS Dur : 088 ms QT Int : 388 ms P-R-T Axes : 064 009 073 degrees QTc Int : 419 ms Normal sinus rhythm Minimal voltage criteria for LVH, may be normal variant Consider early repolarization or pericarditis possible injury pattern Confirmed by DR. Johnathon BANEGAS ([id number]) on 05/27/2018 5:38:40 PM Referred By: JANET Confirmed By:DR. Johnathon BANEGAS
[2018-05-27] MEDS: cloNIDine 0.2 MG TAB PO SCH (20:15)
[2018-05-27] MEDS: Nicotine 14 MG PATCH TOP SCH (20:16)
[2018-05-28] MEDS: cloNIDine 0.3 MG TAB PO SCH ×2 (03:20→08:45)
[2018-05-28 05:50] LABS: Hemoglobin 8.6 g/dL (14.0-18.0); Mean Corpuscular HGB CONC 34.4 g/dL (32.0-36.0); Mean Corpuscular Hemoglobin 34.4 pg (27.0-31.0); Mean Platelet Volume 6.4 fL (7.4-10.4); Platelet Count 299 thou/uL (130-400); White Blood Cell (WBC) Count 6.1 thou/uL (4.8-10.8)
[2018-05-28 06:16] LABS: Anion Gap 10 mmol/L (10-20); BUN (Urea Nitrogen) 13 mg/dL (8.4-25.7); Calc. Creatinine Clearance 95 mL/min (70-130); Carbon Dioxide 31 mmol/L (23-31); Chloride 95 mmol/L (98-107); Estimated GFR-MDRD Greater than 90; Glucose 118 mg/dL (80-115); Sodium 132 mmol/L (136-145)
[2018-05-28] MEDS: D5 0.9% NS w/ 20 mEq KCl 1,000 ML IV SCH ×2 (08:40→09:20)
[2018-05-28] MEDS: HYDROcodone/Acetaminophen 5/325 mg Tablet PO PRN ×2 (08:43→18:12)
[2018-05-28] MEDS: Enoxaparin Sodium 30 MG/0.3 ML SYRINGE SC SCH (08:44)
[2018-05-28] MEDS: Docusate 100 MG CAP PO SCH ×2 (08:44→19:35)
[2018-05-28] MEDS: Multivitamin W/ Minerals 1 TAB PO SCH (08:44)
[2018-05-28] MEDS: Folic Acid 1 MG TAB PO SCH (08:44)
[2018-05-28] MEDS: Thiamine 100 MG TAB PO SCH (08:44)
[2018-05-28] MEDS: chlordiazePOXIDE HCl 25 MG CAP PO SCH (08:44)
[2018-05-28] MEDS: Famotidine 20 MG TAB PO SCH ×2 (08:44→19:36)
[2018-05-28] MEDS: Ferrous Gluconate 324 MG TAB PO SCH ×2 (08:44→19:36)
[2018-05-28] MEDS: Senokot S 8.6-50 MG TAB PO SCH (08:44)
[2018-05-28] MEDS: cloNIDine 0.2 MG TAB PO SCH (08:45)
[2018-05-28] MEDS: cloNIDine 0.1 MG TAB PO SCH ×2 (14:40→19:36)
[2018-05-28] MEDS: traMADol HCl 50 MG TAB PO PRN (16:24)
[2018-05-28] MEDS: Nicotine 14 MG PATCH TOP SCH (19:35)
[2018-05-28 19:39] VITALS: BP 102/57
[2018-05-28 19:40] VITALS: TEMP 97.4
== END 2018-05-28 20:35 | disposition home or self-care (01) | DRG 481 ==
LOC: SURG A 13:10
PROVIDERS: ADMIT Orthopaedic Surgery; ATTEND Orthopaedic Surgery
PROC: 0QS606Z Reposition Right Upper Femur with Intramedullary Internal Fixation Device, Open Approach (ICD-10-PCS; principal; 2018-05-24)
PROC: 0QP604Z Removal of Internal Fixation Device from Right Upper Femur, Open Approach (ICD-10-PCS; 2018-05-25)
DX: S72.21XA Displaced subtrochanteric fracture of right femur, initial encounter for closed fracture (principal); E87.1 Hypo-osmolality and hyponatremia; S72.8X1A Other fracture of right femur, initial encounter for closed fracture; I10 Essential (primary) hypertension; W18.39XA Other fall on same level, initial encounter; Y93.89 Activity, other specified; Z91.81 History of falling; F17.200 Nicotine dependence, unspecified, uncomplicated; F10.21 Alcohol dependence, in remission; Z98.890 Other specified postprocedural states
CPT/HCPCS: 36415; 76000; 80048; 80053; 84295; 85025; 85027; 85610; 85730; 86850; 86900; 86901; 93005; 93010; C1713; C1769; J1650; J1885; J2001; J2405; J2704; J3010; J7050

== ENCOUNTER 2018-06-10 11:18 | Inpatient (IN) | payer MEDICARE, OTHER ==
[2018-06-10] MEDS ORDERED: Ondansetron PF 4 MG/2 ML Vial ONE (12:46)
[2018-06-10] MEDS ORDERED: Lorazepam 2 MG/ML VIAL ONE ×2 (13:05→16:30)
[2018-06-10] MEDS ORDERED: hydrALAZINE 20 MG/ML VIAL ONE (13:05)
[2018-06-10 14:27] VITALS: BMI 20.6
[2018-06-10] MEDS: Sodium Chloride 0.9% 1,000 ML IV SCH ×2 (14:41→22:28)
[2018-06-10] MEDS ORDERED: HYDROcodone/Acetaminophen 5/325 mg Tablet PO PRN (16:50)
[2018-06-10] MEDS ORDERED: HYDROcodone/Acetaminophen 5/325 mg Tablet PO SCH (17:00)
[2018-06-10] MEDS ORDERED: Lorazepam 2 MG/ML VIAL SLOW IVP SCH (17:00)
[2018-06-10] MEDS ORDERED: Senokot S 8.6-50 MG TAB PO PRN (20:16)
[2018-06-10] MEDS ORDERED: Acetaminophen 500 MG TAB PO PRN (20:20)
[2018-06-10] MEDS ORDERED: traMADol HCl 50 MG TAB PO PRN (20:22)
[2018-06-10] MEDS: Famotidine 20 MG TAB PO SCH (21:09)
[2018-06-10] MEDS: Aspirin 81 mg Enteric Coated Tablet PO SCH (21:10)
--- NOTE | 2018-06-10 21:14 | RAD ---
RIGHT HIP TWO VIEWS: History: Right hip fracture. FINDINGS/IMPRESSION: Comparison made with exam of 04-26-18. There has been interval placement of an intramedullary ellis since the previous exam of 05-24-18, legal intern ally fixing the subtrochanteric fracture noted on the previous study. There are two screws through th e neck of the femur. POS: VLADIMIR
[2018-06-11] MEDS: cloNIDine 0.3 MG TAB PO SCH ×3 (00:03→12:49)
--- NOTE | 2018-06-11 04:32 | HP ---
CHIEF COMPLAINT: Confusion and shakiness. PRIMARY CARE PHYSICIAN: Dr. Ji. HISTORY OF PRESENT ILLNESS: Mr. Azul is a 63-year-old male who was recently discharged from the rehab yesterday for a right hip fracture, has had multiple surgeries with hardware placed, has a long history of alcohol abuse. Family reports that the patient has been drinking nonalcoholic beer and has not been eating, and this morning he was very shaky and confused, evidently has not been getting his Librium scheduled as he was prior to going to the rehab, reports that [facility] is going to come to the house and start outpatient physical therapy. The patient was initially seen at [place] [facility] and was sent to [facility] ER for admission. The patient was found to have recurrence of hyponatremia at 124 on the 24 of May as well, and it has improved until today. The patient says he feels better after getting some IV fluids. The patient also reporting worsening of his pain to his right hip, which is the one that he recently had surgery on. The patient admitted for hyponatremia and alcohol withdrawal. PAST MEDICAL HISTORY: Includes hypertension, alcoholism, seizures x1 in February of 2018. PAST SURGICAL HISTORY: Orthopedic surgery of right hip x2, bilateral cataracts, right hand surgery due to a staph infection, left shoulder surgery, EGD x2 for dysphagia. PSYCHIATRIC HISTORY: None. SOCIAL HISTORY: The patient reports that he used to drink every day, more than 10 drinks per day. He is a former drug user, abusing marijuana. Currently, he smokes cigarettes, smokes 1.5 packs per day. Lives at home with his family. KNOWN ALLERGIES: None. CURRENT MEDICATIONS: 1. Tylenol 500 mg p.o. q.4 hours as needed. 2. Librium 25 mg p.o. daily. 3. Multivitamins one capsule p.o. daily. 4. Protonix 20 mg p.o. daily. 5. Senokot S one tablet p.o. daily. 6. Zoloft 50 mg p.o. daily. 7. Aspirin 81 mg p.o. b.i.d. 8. Clonidine 0.3 p.o. q.6 hours as needed. 9. Folic acid 1 mg p.o. daily. 10. Thiamin 100 mg p.o. daily. REVIEW OF SYSTEMS: CONSTITUTIONAL: The patient denies chills or fever. Does report tremulous. EYES: Denies any eye pain or vision changes. ENT: Denies rhinorrhea or sore throat. CARDIOVASCULAR: Denies chest pain. RESPIRATORY: Denies cough or shortness of breath. GI: Does report some nausea and vomiting. Does report some mild epigastric pain for the last month. : Denies any dysuria or hematuria. MUSCULOSKELETAL: Denies any back pain. Denies neck pain. Does report pain in the right hip surgery in late May of last month. SKIN: Denies rash or skin changes. NEUROLOGIC: Reports tremors. Denies dizziness or headache. PHYSICAL EXAMINATION: CONSTITUTIONAL: He is oriented to person and place. He is aware of where he is. He is in no acute distress. EYES: Pupils are equally round and reactive to light. Conjunctivae normal. ENT: Mouth exam is normal. Mucous membranes are moist. NECK: Normal range of motion. Trachea is midline. RESPIRATORY/CHEST: Breath sounds are clear. Chest movement is symmetrical. CARDIOVASCULAR: Regular heart rate and rhythm. Heart sounds are normal. ABDOMEN: Male, mild epigastric tenderness. Bowel sounds are normal. BACK: Normal range of motion. Normal inspection. EXTREMITIES: Upper extremities, normal to inspection. Radial pulses are equal bilaterally. Constant tremors noted bilaterally. Lower extremities, normal to inspection. Pedal pulses are equal bilaterally. No edema is noted. NEUROLOGIC: The patient is alert and oriented to person, place, and time. Speech is low. PSYCHIATRIC: Normal affect. PERTINENT LABORATORY DATA: White blood cell count is 13.8, hemoglobin 11.2, hematocrit is 32.1, platelet count is 466. Sodium is 124, potassium 4.3, chloride is 90, carbon dioxide is 18, gap is 20, BUN is 11, glucose is 108. Lactic acid is 2.3. AST is 50, ALT is 17, alkaline phosphatase is 124, albumin 4.4. ASSESSMENT AND PLAN: 1. Hyponatremia. IV fluids currently running at 125. We will recheck sodium level in the morning, most likely will limit free water. 2. Alcohol withdrawal. We will continue the Librium home medication, add Ativan as needed. 3. Recent history of right hip fracture. X-ray has been ordered. The patient is requesting home medications something for pain. 4. Hypertension, we will continue home medications. We will trend. We will add p.r.n. medications as needed. 5. Gastrointestinal and deep venous thrombosis prophylaxis will be started. 6. Tobacco cessation counseling will be offered. 7. Hospital course will be dependent on clinical findings. Job ID: [id number]
[2018-06-11 07:38] LABS: #Basophils 0.1 thou/uL (0.0-0.2); #Lymphocytes 1.5 thou/uL (1.20-3.40); %Basophils 1.4 % (0.0-1.0); %Eosinophils 0.4 % (0.0-10.0); %Lymphocytes 17.8 % (21.0-51.0); %Monocytes 11.3 % (0.0-10.0); %Neutrophils 69.2 % (42.0-75.0); Hemoglobin 10.6 g/dL (14.0-18.0); Mean Corpuscular HGB CONC 34.1 g/dL (32.0-36.0); Mean Corpuscular Hemoglobin 33.8 pg (27.0-31.0); Mean Corpuscular Volume 99.1 fL (78.0-98.0); Mean Platelet Volume 7.4 fL (7.4-10.4); Platelet Count 438 thou/uL (130-400); RBC Distribution Width 11.9 % (11.5-14.5); Red Blood Cell (RBC) Count 3.14 mill/uL (4.70-6.10); White Blood Cell (WBC) Count 8.6 thou/uL (4.8-10.8)
[2018-06-11 07:59] LABS: ALT (SGPT) 14 U/L (8-55); AST (SGOT) 14 U/L (5-34); Albumin 3.6 g/dL (3.4-4.8); Alkaline Phosphatase 114 U/L (40-150); Anion Gap 12 mmol/L (10-20); BUN (Urea Nitrogen) 10 mg/dL (8.4-25.7); Bilirubin, Total 0.6 mg/dL (0.2-1.2); Calc. Creatinine Clearance 89 mL/min (70-130); Carbon Dioxide 26 mmol/L (23-31); Chloride 95 mmol/L (98-107); Estimated GFR-MDRD Greater than 90; Globulin 2.4 g/dL (2.4-3.5); Glucose 82 mg/dL (80-115); Potassium 3.4 mmol/L (3.5-5.1); Sodium 130 mmol/L (136-145)
[2018-06-11] MEDS ORDERED: chlordiazePOXIDE HCl 25 MG CAP PO SCH (09:00)
[2018-06-11] MEDS ORDERED: Enoxaparin Sodium 40 MG/0.4 ML SYRINGE SC SCH (09:00)
[2018-06-11] MEDS ORDERED: Thiamine 100 MG TAB PO SCH (09:00)
[2018-06-11] MEDS ORDERED: Folic Acid 1 MG TAB PO SCH (09:00)
[2018-06-11] MEDS ORDERED: Multivit, Therapeutic 1 TAB PO SCH (09:00)
[2018-06-11] MEDS: Aspirin 81 mg Enteric Coated Tablet PO SCH (09:46)
[2018-06-11] MEDS: Famotidine 20 MG TAB PO SCH (09:46)
[2018-06-11 17:57] VITALS: BP 119/62
[2018-06-11 17:58] VITALS: TEMP 98.2
--- NOTE | 2018-06-12 02:59 | DIS ---
DATE OF ADMISSION: 06/10/2018 DATE OF DISCHARGE: 06/11/2018 ALLERGIES: NO KNOWN DRUG ALLERGIES. CHIEF COMPLAINT: Confusion and shakiness. FINAL DIAGNOSES: 1. Altered mental status secondary to hyponatremia in the setting of beer potomania, resolved. 2. History of alcoholism, now drinking nonalcoholic beer at home. 3. Recent right femoral neck fracture, status post open reduction and internal fixation with Dr. Chavez on May 25, 2018, with recent discharge from inpatient rehab. 4. Hypertension. 5. Tobacco abuse. PROCEDURES PERFORMED: None. LABORATORY RESULTS: Sodium 130, improved from 124 on admission; potassium 3.4; chloride 95; creatinine 0.84; GFR greater than 90; glucose 82; AST 14; ALT 14; alkaline phosphatase 114. Red blood cell count 3.14, hemoglobin 10.6, and hematocrit 31.1. IMAGING RESULTS: Hip x-ray showed interval placement of an intramedullary ellis since the previous exam of May 24 and internal fixing of the subtrochanteric fracture noted on the previous study. Two screws noted to the neck of the femur. CONSULTATIONS: None. VITAL SIGNS: Blood pressure 123/62, pulse 56, O2 saturation 97% on room air, respirations 18, and temperature is 98.6. HOSPITAL COURSE: The patient is a pleasant 63-year-old male with past medical history significant for alcoholism; hypertension; tobacco abuse; and recent right femoral neck fracture, status post ORIF on May 25, 2018; who presented to the hospital with complaints of confusion and shakiness. The patient had recently been discharged from inpatient rehab, where he was receiving his Librium daily. Upon discharge to his house, he was noncompliant with taking this medication on a daily basis, and was drinking large amounts of 0% alcohol beer per his . Beside the nonalcoholic beer, he had poor oral intake as far as his meals and diet. When he woke up yesterday morning, he was feeling very confused and shaky, so his drove him to the [place] [facility]. Upon workup there, it was significant for hyponatremia at 124. He was sent to our facility for further management and workup. After IV fluid resuscitation, the patient's presenting symptoms have completely resolved. His sodium has improved to 130, which is his average level per review of records in the hospital. He has ambulated up and down the hallway with physical therapy this morning without assistance. He is eating 100% of his meals. He has had no nausea or vomiting. He is alert and oriented. He has had no signs of overt alcohol withdrawal overnight since his home medication of Librium has been added. He is completely non-tremulous at my interview. PHYSICAL EXAMINATION: GENERAL: The patient is a thin male, resting comfortably, in no acute distress. HEENT: Atraumatic and normocephalic. Eye movement intact. Mucous membranes are moist. NECK: Supple. No lymphadenopathy. Trachea is midline. No carotid bruits. RESPIRATORY: Regular respiratory rate and pattern. Clear to auscultation bilaterally. CV: S1 and S2. Regular rate and rhythm. No appreciable murmurs, rubs, or gallops. GI: Soft, nontender. Normal bowel sounds. PERIPHERAL VASCULAR: No lower extremity pitting edema. Lower extremities are warm and well perfused. MUSCULOSKELETAL: No joint effusions or swelling. NEUROLOGIC: He is awake and alert. He is oriented x3. Cranial nerves 2 through 12 are grossly intact. He has no focal deficits. No tremor. SKIN: Warm and dry. No evidences of rash or skin discoloration. CONDITION AT DISCHARGE: Stable. DISCHARGE MEDICATIONS: He will continue his home medication regimen, which includes: 1. Librium 25 mg p.o. daily. 2. One multivitamin daily. 3. Pantoprazole 20 mg tablet 1 tablet daily. 4. Senokot 1 tablet p.o. daily. 5. Sertraline 50 mg tablet 1 tablet daily. 6. Aspirin 81 mg tablet 1 tablet p.o. b.i.d. 7. Clonidine 0.3 mg p.o. q.6 hours. 8. Folic acid 1 mg tablet 1 tablet p.o. daily. 9. Thiamine 100 mg tablet 1 tablet p.o. daily. 10. Acetaminophen 500 mg tablet 1 tablet p.o. q.4 hours p.r.n. DISCHARGE DISPOSITION: Home with outpatient physical therapy. PLAN: The patient has been counseled extensively on his alcohol dependence as well as his current use of nonalcoholic beer and its effect on electrolytes. He and his have both been counseled extensively. He does understand the consequences. I have advised him to eat a nutritious heart healthy diet and continue his vitamin supplements. He will continue to participate in outpatient physical therapy that has already been arranged. He will continue his Librium daily and follow up with his primary care physician, Dr. Ji. All questions answered to the patient's satisfaction. Care discussed with Dr. Victoria who agrees. Job ID: [id number]
--- NOTE | 2018-06-12 11:48 | PQF ---
SUZETTE MONTES AMANDA C [id number] CLINICAL DOCUMENTATION IMPROVEMENT CLARIFICATION FORM: ICD-10 Updated PLEASE DO AN ADDENDUM TO THE PROGRESS NOTE WITH ANY DOCUMENTATION UPDATES OR ADDITIONS AND CARRY THROUGH TO DC SUMMARY. THANK YOU. DATE: 06/12/18 ATTN: ALYSHA Armenta Please exercise your independent, professional judgment in responding to the clarification form. Clinical indicators are provided on the bottom of this form for your review Please check appropriate box(s): [ ] Encephalopathy: Type: [ ] Acute [ ] Subacute [ ] Chronic Etiology: [ ] Metabolic [ ] Drug induced: [ ] Unspecified [ ] in the setting of underlying dementia [ ] Other (please specify) [ x ] Transient Alteration of Awareness [ ] Other diagnosis [ ] Unable to determine In addition, please specify: Present on Admission (POA): [ x ] Yes [ ] No [ ] Unable to determine For continuity of documentation, please document condition throughout progress notes and discharge summary. Thank You. CLINICAL INDICATORS - SIGNS / SYMPTOMS / LABS 06/10 ED: patient confused; oriented to person; hyponatremia with mental status changes Metabolic / electrolyte abnormality--> NA 130 06/11 per lab H&P: oriented to person and place 06/11 discharge summary: AMS 2 TO HYPONATREMIA SECONDARY IN THE SETTING OF BEER POTOMANIA, HTN, TOBACCO ABUSE RISK FACTORS H&P: hyponatremia, alcohol withdrawal TREATMENTS: Correction of electrolyte imbalances IV ativan 06/10 per MAY IV fluids--> 1 liter NS 06/10 per MAY (This form is maintained as a part of the permanent medical record) 2014 [employer], [employer]. All Rights Reserved Tawny Quach RN, BSN, CCDS [email or web address] [phone] JEAN CARLOS
== END 2018-06-11 16:53 | disposition home health service (06) | DRG 641 ==
LOC: ERS 11:18 → ERHOLD 12:17 → T4-A 14:17
PROVIDERS: ADMIT Family Medicine; ATTEND Family Medicine
DX: E87.1 Hypo-osmolality and hyponatremia (principal); I10 Essential (primary) hypertension; F17.210 Nicotine dependence, cigarettes, uncomplicated; F10.21 Alcohol dependence, in remission; Z98.41 Cataract extraction status, right eye; Z98.42 Cataract extraction status, left eye; Z79.82 Long term (current) use of aspirin; Z71.6 Tobacco abuse counseling; Z71.41 Alcohol abuse counseling and surveillance of alcoholic
CPT/HCPCS: 36415; 80053; 85025; J0360; J1650; J2060; J2405

== ENCOUNTER → 2018-07-17 | Outpatient (CLI) | payer MEDICARE, BC, OTHER ==
--- NOTE | 2018-07-17 19:05 | RAD ---
RIGHT FEMUR RADIOGRAPHS TWO VIEWS: 07/17/18 PROVIDED CLINICAL HISTORY: Right leg pain. FINDINGS: Comparison is made with the study dated 06/10/18. Postoperative changes as previously described appears stable. There is no evidence for hardware loose paulette or migration. There is no evidence for new fracture. Vascular calcifications are seen. IMPRESSION: Postoperative changes involving the right hip without evidence for an acute osseous abnormality. If t here is persistent clinical concern, conservative management and follow-up imaging are advised. POS: FRANCISCO
== END ==
LOC: EDSTATUS 13:04 → SCSRAD 18:09
PROVIDERS: ATTEND Family Medicine
DX: S72.91XS Unspecified fracture of right femur, sequela (principal); Z98.890 Other specified postprocedural states

== ENCOUNTER 2018-12-16 22:28 | Inpatient (IN) | payer MEDICARE, OTHER ==
[2018-12-16] MEDS ORDERED: Ondansetron PF 4 MG/2 ML Vial ONE (22:57)
[2018-12-16 23:42] LABS: #Eosinphils 0.3 thou/uL (0.0-0.7); #Lymphocytes 1.8 thou/uL (1.20-3.40); #Neutrophils 7.5 thou/uL (1.40-6.50); %Basophils 0.5 % (0.0-1.0); %Eosinophils 2.5 % (0.0-10.0); %Lymphocytes 17.2 % (21.0-51.0); %Monocytes 9.3 % (0.0-10.0); %Neutrophils 70.6 % (42.0-75.0); Mean Corpuscular HGB CONC 36.4 g/dL (32.0-36.0); Mean Corpuscular Hemoglobin 32.5 pg (27.0-31.0); Mean Corpuscular Volume 89.3 fL (78.0-98.0); Mean Platelet Volume 5.9 fL (7.4-10.4); Platelet Count 282 thou/uL (130-400); RBC Distribution Width 12.3 % (11.5-14.5); Red Blood Cell (RBC) Count 4.01 mill/uL (4.70-6.10); White Blood Cell (WBC) Count 10.6 thou/uL (4.8-10.8)
[2018-12-16 23:57] LABS: ALT (SGPT) 7 U/L (8-55); AST (SGOT) 13 U/L (5-34); Albumin 4.1 g/dL (3.4-4.8); Alkaline Phosphatase 97 U/L (40-110); Anion Gap 12 mmol/L (10-20); BUN (Urea Nitrogen) Less than 4 mg/dL (8.4-25.7); Bilirubin, Total 0.7 mg/dL (0.2-1.2); Calc. Creatinine Clearance 0 mL/min (70-130); Carbon Dioxide 25 mmol/L (23-31); Chloride 81 mmol/L (98-107); Estimated GFR-MDRD Greater than 90; Globulin 2.5 g/dL (2.4-3.5); Glucose 116 mg/dL (80-115); Potassium 3.7 mmol/L (3.5-5.1); Protein, Total 6.6 g/dL (5.8-8.1)
--- NOTE | 2018-12-17 00:01 | CT ---
CT HEAD NONCONTRAST: Comparison: 04-21-18 Indication: Seizure FINDINGS: Motion artifact does limit the assessment, decreasing the sensitivity of the evaluation. Mild promine nce of the ventricular system remains. There is no acute intracranial hemorrhage, mass effect, or mid line shift. Mild chronic ischemic disease is similar appearing. The brain is otherwise stable. IMPRESSION: No interval acute intracranial abnormality. POS: C
[2018-12-17 00:02] LABS: Sodium 114 mmol/L (136-145)
[2018-12-17] MEDS ORDERED: Sodium Chloride 3% 100 ML IVPB SCH (00:45)
[2018-12-17] MEDS ORDERED: Lorazepam 2 MG/ML VIAL SLOW IVP PRN (01:03)
--- NOTE | 2018-12-17 01:57 | PDOC.EVN ---
Event Note - Event Note Event Note: [id number] HP
[2018-12-17 03:17] VITALS: BMI 21.9
[2018-12-17 04:42] LABS: Medtox Reader # READER 4
[2018-12-17 04:43] LABS: Amphetamine Not Detected (NotDetected); Barbiturates Screen Not Detected (NotDetected); Benzodiazepine Screen Not Detected (NotDetected); Cocaine Metabolite Screen Not Detected (NotDetected); Medtox Control Line Valid? VALID (VALID); Methadone Not Detected (NotDetected); Methamphetamine Not Detected (NotDetected); Opiate Screen Not Detected (NotDetected); Oxycodone Screen Not Detected (NotDetected); Phencyclidine (PCP) Not Detected (NotDetected); THC/Cannabinoid Screen Detected (NotDetected); Tricyclic Screen Not Detected (NotDetected)
[2018-12-17 05:55] LABS: Anion Gap 12 mmol/L (10-20); BUN (Urea Nitrogen) Less than 4 mg/dL (8.4-25.7); Calc. Creatinine Clearance 97 mL/min (70-130); Carbon Dioxide 23 mmol/L (23-31); Chloride 91 mmol/L (98-107); Estimated GFR-MDRD Greater than 90; Glucose 107 mg/dL (80-115); Potassium 3.9 mmol/L (3.5-5.1); Sodium 122 mmol/L (136-145)
--- NOTE | 2018-12-17 07:47 | HP ---
CHIEF COMPLAINT: Seizures. HISTORY OF PRESENT ILLNESS: Mr. Azul is a 63-year-old male with past medical history of alcohol abuse, seizures, and hypertension, presented to the emergency room after a seizure. As per family, patient was in bed, body tensing and eyes rolled backward, foaming at the mouth. This lasted for a few minutes. Patient was slow to respond after that, currently, patient is fully awake and alert. He had history in the past due to low sodium and alcohol abuse. As per patient, he stopped drinking back in May, but he is currently drinking 8 to 12 nonalcoholic beers per day without eating. In the emergency room, patient was found to be hyponatremic with a sodium of 114. ED physicians discussed with health center manager who advised to give 100 mL of 3% sodium chloride and repeat the sodium level after that and if the sodium is less than 118, to repeat it the hypertonic saline. Patient is being admitted to the [facility] for further management. PAST MEDICAL HISTORY: 1. Hypertension. 2. Alcohol abuse. 3. Seizures. 4. Hyponatremia. PAST SURGICAL HISTORY: 1. Orthopedic surgery. 2. Right hip surgery. 3. Bilateral cataract surgery. 4. Right hand. 5. Orthopedic surgery. 6. Left shoulder. SOCIAL HISTORY: Currently, he drinks nonalcoholic beers, and he abuses marijuana, last use 12/16/2018. He currently smokes cigarettes one pack per day. FAMILY HISTORY: Reviewed and noncontributory. HOME MEDICATIONS: Please see home medication reconciliation form for the medication. ALLERGIES: NO KNOWN ALLERGIES. REVIEW OF SYSTEMS: Review of 14 systems negative, except what is mentioned in the history of present illness. PHYSICAL EXAMINATION: GENERAL: Patient is awake, alert, does not appear to be in acute distress. VITAL SIGNS: Blood pressure 170/76, pulse is , respiratory rate 17, temperature 97.8, and pulse oximetry is 98% on room air. HEENT: Normocephalic. NECK: Supple. No JVD. CHEST: Fair bilateral air entry. HEART: S1, S2. Regular. ABDOMEN: Soft, nontender. Bowel sounds present. NEUROLOGIC: Awake, alert, and oriented x3. PSYCH: Normal mood. EXTREMITIES: No clubbing, no cyanosis. LABORATORY DATA: Sodium is 114, BUN is less than 4, creatinine 0.7, and glucose 116. WBC count is 7.6, hemoglobin 13, and platelets 282. Magnesium is 1.9. Prolactin 10.4. ASSESSMENT: 1. Symptomatic hyponatremia. 2. Seizures. 3. History of alcohol abuse. 4. Hypertension. PLAN: 1. Admit to IMCU. 2. Frequent neuro checks. 3. Seizure precautions. 4. 3% sodium chloride ordered to be given over 3 hours, recheck sodium after that. If it is less than 118, repeat hypertonic saline. 5. Clamper consulted for evaluation and further management. 6. Reconcile home medications. 7. DVT prophylaxis as appropriate. 8. Expected length of stay 2 midnights or more. Case was discussed with ED physician and patient's primary. Expected length of stay is 2 midnights or more. Job ID: [id number]
[2018-12-17] MEDS ORDERED: FLU VACC TS2019-20(65YR UP)/PF 180 MCG/0.5 ML SYRINGE IM ONE (09:00)
[2018-12-17 09:30] LABS: Anion Gap 11 mmol/L (10-20); BUN (Urea Nitrogen) Less than 4 mg/dL (8.4-25.7); Calc. Creatinine Clearance 92 mL/min (70-130); Calcium 9.4 mg/dL (7.8-10.44); Carbon Dioxide 25 mmol/L (23-31); Chloride 93 mmol/L (98-107); Estimated GFR-MDRD Greater than 90; Glucose 98 mg/dL (80-115); Sodium 125 mmol/L (136-145)
[2018-12-17] MEDS: Dextrose 5% in Water 1,000 ML IV SCH ×2 (10:37→16:33)
--- NOTE | 2018-12-17 12:34 | CON ---
DATE OF CONSULTATION: 12/17/2018 CONSULTING PHYSICIAN: Rene Wahl MD REASON FOR CONSULTATION: Hyponatremia. REASON FOR ADMISSION: Seizure. HISTORY OF PRESENT ILLNESS: This is a 63-year-old male with history of alcohol use, hypertension, who came to the hospital with possible seizures. His family found him having some jerking movements and foaming of the mouth. The patient was found to have a sodium of 114 and was treated in the ER with 3% saline. This morning, sodium is 122 to 125. The patient is feeling better and eating and admits to drinking a lot of beer. PAST MEDICAL HISTORY: Positive for hypertension, alcohol use, seizures, and hyponatremia. PAST SURGICAL HISTORY: Orthopedic surgery, right hip surgery, cataract surgery, right hand surgery, and orthopedic left shoulder surgery. HOME MEDICATIONS: Include aspirin. ALLERGIES: NO KNOWN DRUG ALLERGIES. SOCIAL HISTORY: He smokes one pack per day of tobacco. He drinks 6 to 8 beers per day. FAMILY HISTORY: No history of kidney disease. REVIEW OF SYSTEMS: CONSTITUTIONAL: Negative for weight loss or gain, ability to conduct usual activities. SKIN: Negative for rash, itching. EYES: Negative for double vision, pain. ENT/MOUTH: Negative for nose bleeding, neck stiffness, pain, tenderness. CARDIOVASCULAR: Negative for palpitations, dyspnea on exertion, orthopnea. RESPIRATORY: Negative for shortness of breath, wheezing, cough, hemoptysis, fever or night sweats. GASTROINTESTINAL: Negative for poor appetite, abdominal pain, heartburn, nausea, vomiting, constipation, or diarrhea. GENITOURINARY: Negative for urgency, frequency, dysuria, nocturia. MUSCULOSKELETAL: Negative for pain, swelling. NEUROLOGIC/PSYCHIATRIC: Negative for anxiety, depression. ALLERGY/IMMUNOLOGIC: Negative for skin rash, bleeding tendency. PHYSICAL EXAMINATION: GENERAL: Reveals a thin-built male, in no apparent distress. VITAL SIGNS: Temperature 98.8, pulse 73, respiratory rate 18, and blood pressure 130/59. HEENT: Atraumatic and normocephalic. Oral mucosa is moist. NECK: Supple. CARDIOVASCULAR: S1 and S2. Regular rate and rhythm. RESPIRATORY: Clear. GASTROINTESTINAL: Abdomen is soft. MUSCULOSKELETAL: 1+ edema. DERMATOLOGIC: No skin rash. NEUROLOGIC: Alert and awake. PSYCHIATRIC: Mood and affect normal. LABORATORY DATA: Sodium is 114 up to 125 with 3% hypertonic saline. Potassium 4.0, BUN is less than 4. ASSESSMENT AND PLAN: 1. Hyponatremia, better, but slight overcorrection. We will add D5W and check sodium every 6 hours. 2. Edema, controlled. 3. Hypertension. 4. Alcohol use, consult. 5. Anemia, normocytic. 6. Hypochloremia. 7. Hypo-osmolality. 8. Substance use. Plan is to start back on D5W, though come back to overcorrection. We will follow. Job ID: [id number]
[2018-12-17 20:51] LABS: Potassium 3.9 mmol/L (3.5-5.1)
[2018-12-18 06:26] LABS: Anion Gap 14 mmol/L (10-20); BUN (Urea Nitrogen) 5 mg/dL (8.4-25.7); Calc. Creatinine Clearance 90 mL/min (70-130); Calcium 9.1 mg/dL (7.8-10.44); Carbon Dioxide 21 mmol/L (23-31); Chloride 97 mmol/L (98-107); Estimated GFR-MDRD Greater than 90; Glucose 87 mg/dL (80-115); Potassium 3.8 mmol/L (3.5-5.1); Sodium 128 mmol/L (136-145)
--- NOTE | 2018-12-18 07:57 | CON ---
DATE OF CONSULTATION: 12/17/2018 HISTORY OF PRESENT ILLNESS: Mr. Azul is a 63-year-old male who has a history of alcoholism. He says he has been drinking beer all day long for quite some time and not eating. He has a long history of alcohol abuse. He says he has actually been admitted for seizure in the past related to sodium imbalance. Reviewing old records, he was admitted with dysphagia and had ulcerative esophagitis and a stricture on endoscopy by Dr. Arceo. On March 21, he was admitted and required an open reduction of a shoulder dislocation and a surgical repair of a humerus fracture. He had apparently fallen 5 days prior to admission. He actually had alcohol withdrawal while he was in the hospital at that time. PAST MEDICAL HISTORY: 1. He has a history of hypertension. 2. He has a history of, April 2018, having a femur fracture after falling. 3. History of a seizure in 2017, felt to be related to his alcohol abuse and hyponatremia. 4. History of hyponatremia in June 2018 secondary to his heavy alcohol use with no nutritional supplementation. 5. History of cataract surgery. He smokes marijuana. The admission history and physical says he drinks nonalcoholic beer, but he told that he has been drinking beer continuously all day long for months without taking any p.o. nutrition. Smokes a pack a day. FAMILY HISTORY: Negative for lung disease. REVIEW OF SYSTEMS: 10 point review of systems completed, otherwise negative. ALLERGIES: HE HAS NO ALLERGIES. SOCIAL HISTORY: He is for 40+ years and retired, quickly admits that he is amazed that his has not left him. PHYSICAL EXAMINATION: VITAL SIGNS: His heart rate is in the 90s, blood pressure 141/67, respiratory rate 18. GENERAL: He is in no distress. HEENT: Pupils are equal. Sclerae are anicteric. NECK: Supple. LUNGS: Clear. HEART: Regular rhythm. ABDOMEN: Soft and nontender. EXTREMITIES: Without clubbing, cyanosis, or edema. NEURO: Nonfocal. LABORATORY DATA: White count 10.6, hemoglobin 13.0, platelets 282. Sodium is 114 when he came in, it is 125 this afternoon. BUN is less than 4, creatinine is 0.83. IMPRESSION: Beer drinker's potomania with a seizure secondary to hyponatremia. He is out of the risks zone for seizing. He has significant protein malnutrition reflected by an undetectable blood urea nitrogen content. He could be transferred out of the intermediate care unit and even considered for discharge in the morning. His sodium will correct if he is nutritionally intact and stays away from alcohol for a while. He is certainly at risk for alcohol withdrawing while he is in the hospital. I doubt his hyponatremia is secondary to hypothyroidism or adrenal insufficiency. We discussed Alcoholics Anonymous, which he has participated in the past. It is unlikely he will succeed in abstaining from alcohol given his history. He has had multiple fractures related to his alcohol and now 2 admissions for hyponatremia and seizures related to his alcoholism. This is a 50 minute consult, with greater than 50% of time spent on unit coordinating care. Job ID: [id number] JEAN CARLOS
--- NOTE | 2018-12-18 15:07 | PDOC.HOSPP ---
- Subjective Encounter Date: 12/18/18 Encounter Time: 15:00 Subjective: The patient doesn't recall why he came to the hospital, states that he had a seizure three months ago but none since then. He states he quit drinking alcohol a few months ago when his PCP told him that it would cause him to have more health problems. He doesn't recall having a seizure last night. Patient was reportedly making grunting noises and his eyes started rolling backward. Denies headaches, weakness or tingling in extremities. He is eating and drinking well, ambulating around the hallway. Patient states he is "bored" and wants to go home soon. His states that the patient drinks non-alcoholic beer. He does not eat much food. - Objective Vital Signs & Weight: Vital Signs (12 hours) Temp Pulse Resp BP Pulse Ox 12/18/18 11:21 98.7 F 12/18/18 08:00 100 12/18/18 07:19 97.8 F 12/18/18 04:24 98.2 F 68 16 124/56 L 96 Weight Weight 155 lb 12.8 oz Most Recent Monitor Data Heart Rate from ECG 81 NIBP 92/54 NIBP BP-Mean 66 Respiration from ECG 16 SpO2 98 I&O: 12/17/18 12/18/18 12/19/18 06:59 06:59 06:59 Intake Total 0 1549 Output Total 1150 2000 Balance -1150 -451 Result Diagrams: 12/16/18 23:29 12/18/18 05:45 Hospitalist ROS - Review of Systems Constitutional: denies: fever, chills Eyes: denies: vision change - Exam General Appearance: NAD, awake alert Eye: PERRL, anicteric sclera ENT: normocephalic atraumatic, no oropharyngeal lesions Neck: supple, symmetric, no JVD Heart: RRR, no murmur, no gallops Respiratory: CTAB, no wheezes, no rales, no ronchi Gastrointestinal: soft, non-tender, non-distended Extremities: no cyanosis, no clubbing, no edema Skin: normal turgor, no lesions Neurological: cranial nerve grossly intact, normal sensation to touch, no focal deficits, no new deficit Musculoskeletal: normal tone, normal strength Psychiatric: normal affect, normal behavior Hosp A/P - Plan CT head: no acute abnormality This is a 63 year old male with history of alcoholism with admissions for hyponatremia in the past who was admitted with seizure and found to be hyponatremic, s/p 3% hypertonic saline. Seizure secondary to hyponatremia secondary to likely alcoholism - sodium was 114 on admission and improved to 122. Patient was then placed on D5W and then discontinued - sodium currently 128. - will continue to monitor - utox positive for marijuana, alcohol level low - will start thiamine Anemia - check B12 and folate Code status: full code unless brain
[2018-12-18 16:54] LABS: Anion Gap 13 mmol/L (10-20); BUN (Urea Nitrogen) 9 mg/dL (8.4-25.7); Calc. Creatinine Clearance 84 mL/min (70-130); Carbon Dioxide 22 mmol/L (23-31); Chloride 98 mmol/L (98-107); Estimated GFR-MDRD 87; Glucose 98 mg/dL (80-115); Sodium 129 mmol/L (136-145)
--- NOTE | 2018-12-18 20:18 | PRG ---
DATE OF SERVICE: 12/18/2018 SUBJECTIVE: Patient was seen and examined at bedside and overnight events noted. Patient denies any shortness of breath or chest pain or palpitation. No history of nausea or vomiting or diarrhea or fever or chills or cramps. OBJECTIVE: GENERAL: This is a thin-built male, in no apparent distress. VITAL SIGNS: Temperature 98.9, pulse 67, respiratory rate 18, and blood pressure 131/61. HEENT: Atraumatic, normocephalic. Oral mucosa is moist NECK: Supple. CARDIOVASCULAR: S1, S2 heard. Rate and rhythm regular. RESPIRATORY: Clear to auscultation. GASTROINTESTINAL: Abdomen is soft. MUSCULOSKELETAL: No tenderness. No edema. DERMATOLOGIC: No skin rash. NEUROLOGIC: Alert and awake and oriented X3. No focal neurologic deficits. Moving all the extremities. PSYCHIATRIC: Mood and affect normal. LABORATORY DATA: Sodium 129, potassium 4.0, BUN is 9, and creatinine is 0.8. ASSESSMENT AND PLAN: 1. Hyponatremia, most likely secondary to beer drinker's potomania with appropriate correction. We will encourage him to have a good p.o. intake. The patient was encouraged to have good protein intake. 2. Edema, controlled. 3. Hypertension. 4. Alcohol use. 5. Hypochloremia. 6. Hypo-osmolality. 7. Substance abuse. Prognosis poor. The patient was counseled to quit alcohol. We will follow. Encourage p.o. intake and limit fluid intake at this point. Job ID: [id number]
[2018-12-19 07:05] LABS: Anion Gap 12 mmol/L (10-20); BUN (Urea Nitrogen) 11 mg/dL (8.4-25.7); Calc. Creatinine Clearance 69 mL/min (70-130); Calcium 9.3 mg/dL (7.8-10.44); Carbon Dioxide 24 mmol/L (23-31); Chloride 100 mmol/L (98-107); Estimated GFR-MDRD 70; Glucose 82 mg/dL (80-115); Potassium 4.2 mmol/L (3.5-5.1); Sodium 132 mmol/L (136-145)
[2018-12-19] MEDS ORDERED: Thiamine 100 MG TAB PO SCH (09:00)
[2018-12-19] MEDS ORDERED: Folic Acid 1 MG TAB PO SCH (09:00)
--- NOTE | 2018-12-19 09:11 | PRG ---
DATE OF SERVICE: 12/18/2018 SUBJECTIVE: Mr. Azul is clinically stable. He is not confused. He has had no seizures. His sodium is almost returned to normal. OBJECTIVE: LUNGS: Clear. HEART: Regular rhythm. ABDOMEN: Soft. He wants to go home. IMPRESSION AND PLAN: Hyponatremia secondary to alcoholism. I believe, he is stable for discharge. He is certainly stable to move out of critical care unit. Job ID: [id number]
--- NOTE | 2018-12-19 10:59 | PRG ---
DATE OF SERVICE: 12/19/2018 SUBJECTIVE: Patient was seen and examined at bedside and overnight events noted. Patient denies any shortness of breath or chest pain or palpitation. No history of nausea or vomiting or diarrhea or fever or chills or cramps. OBJECTIVE: GENERAL: This is a well-built male, in no apparent distress. VITAL SIGNS: Temperature 97.9. Pulse 60. Respiratory rate 19. Blood pressure 131/75. HEENT: Atraumatic, normocephalic. Oral mucosa is moist NECK: Supple. CARDIOVASCULAR: S1, S2 heard. Rate and rhythm regular. RESPIRATORY: Clear to auscultation. GASTROINTESTINAL: Abdomen is soft. MUSCULOSKELETAL: No tenderness. No edema. DERMATOLOGIC: No skin rash. NEUROLOGIC: Alert and awake and oriented X3. No focal neurologic deficits. Moving all the extremities. PSYCHIATRIC: Mood and affect normal. LABORATORY DATA: Potassium 4.2, BUN is 11, creatinine is 1.06, sodium is 132. ASSESSMENT AND PLAN: 1. Hyponatremia, secondary to beer drinker's potomania and sodium level is better. Limit fluid intake. 2. Edema, controlled. 3. Hypertension. 4. Alcohol use. 5. Substance abuse. The patient counseled to limit fluid intake. The patient counseled again and encouraged to have oral intake. Job ID: [id number]
[2018-12-19 12:04] VITALS: BP 144/74; TEMP 97.9
--- NOTE | 2018-12-20 05:30 | PQF ---
[employer] Courtesy Clerk Crystal Reports [employer] SUZETTE Ray REJEESH MD [id number] CLINICAL DOCUMENTATION CLARIFICATION FORM: POST DISCHARGE Addendum to original discharge summary date: ____ Late entry note date: __ Date: 12/20/2018 ATTN: MCAK GONZALES MD Please exercise your independent, professional judgment in responding to the clarification form. Clinical indicators are provided on the bottom of this form for your review Please check appropriate box(s): [ ] Protein Calorie Malnutrition: [ ] Mild [ ] Moderate [ ] Severe [ ] Other diagnosis [ ] Unable to determine CLINICAL INDICATORS - SIGNS / SYMPTOMS / LABS -He had significant protein malnutrition reflect by an undetectable blood urea nitrogen content--Consult report, 12/17, Kelin arias MD -Severe anicteric -Consult report, 12/17, Kelni Arias MD -Total protein:6.6-, Albumin:4.1- Laboratory 12/18 -Anemia, Normocytic,Consult report 12/17, MACK GONZALES MD -BMI: 21.9- FNS assessment RISK FACTORS -Hyponatremia--Consult report, 12/17, Kelin Arias MD -Alcohol use - PN, 12/19, Kelin Arias MD TREATMENT: -Sodium chloride.IV-MAY, 12/17 -Folic acid PO-MAY, 12/19 Moderate Malnutrition (in acute illness) Energy Intake: <75% of estimated energy requirement for > 7 days Weight Loss: 1-2%/1 week; 5%/ 1 month; 7.5%/3 months Other: mild body fat loss; mild muscle mass loss; mild fluid accumulation; Severe Malnutrition (in acute illness) Energy Intake: < 50% of estimated energy requirement for > 5 days Weight Loss: >1-2%/1 week; >5%/1 month; >7.5%/3 months Other: moderate body fat loss; moderate muscle mass loss; moderate- severe fluid accumulation; measurably reduced metal tile lather strength Moderate Malnutrition (in chronic illness) Energy Intake: <75% of estimated energy requirement for >1 month Weight Loss: 5%/1 month; 7.5%/3 months; 10%/6 months; 20%/1 year Other: mild body fat loss; mild muscle mass loss; mild fluid accumulation [employer] Courtesy Clerk Crystal Reports Win[employer] ViewerSevere Malnutrition (in chronic illness) Energy Intake: <75% of estimated energy requirement for >1 month Weight Loss: >5%/1 month; >7.5%/3 months; >10%/6 months; >20%/1 year Other: severe body fat loss; severe muscle mass loss; severe fluid accumulation ; measurably reduced metal tile lather strength (This form is maintained as a part of the permanent medical record) 2014 [email or web address]. All Rights Reserved Sarah Rosario [not provided] [not provided] JEAN CARLOS
--- NOTE | 2018-12-20 13:47 | DIS ---
DATE OF ADMISSION: 12/17/2018 DATE OF DISCHARGE: 12/19/2018 ADMISSION DIAGNOSES: Seizure secondary to symptomatic hyponatremia, history of alcohol abuse, and hypertension. DISCHARGE DIAGNOSES: Seizure, secondary to hyponatremia secondary to possible alcoholism; anemia; and hyponatremia. CONSULTATIONS: Critical care, Dr. Hugo Neville; Nephrology, Renato Longo. PROCEDURES: None. HISTORY AND HOSPITAL COURSE: Seizure secondary to hyponatremia: This is a 63-year-old male with a past medical history of alcohol abuse, seizures, and hypertension, who presented to the ER after his noticed a seizure while the patient was sleeping. The patient reportedly stopped drinking alcohol back in May, but drinks 8 to 12 nonalcoholic beers per day and does not eat any food. On presentation to the ER, his sodium level was noted to be 114. The patient was admitted to the ICU for 3% hypertonic saline. Repeat BMP showed a sodium of 122. The patient was then placed on D5W and the patient's sodium remains stable at 125 on 12/17. On 12/18, the patient's sodium improved to 128. D5W was discontinued. On 12/19, the patient's sodium improved to 132. The patient had no further episodes of seizures and denied any dizziness or lightheadedness. The patient did have a CT scan of the brain, which showed no acute disease. He was advised to eat food with salt in addition to drinking water. He was advised on appropriate diet of fruit, vegetables and protein. He was advised to follow up with his PCP in a week and have his sodium level rechecked. Anemia: The patient had a hemoglobin of 13. Vitamin B12 and folate were checked, which were normal. The patient can have a repeat CBC as an outpatient with his PCP. DISCHARGE PHYSICAL EXAMINATION: VITAL SIGNS 12/19/18: temperature 97.9, heart rate 64, respiratory rate 18, O2 sat 97% on room air, and blood pressure 144/74. GENERAL: The patient was alert, awake, and oriented x3, in no acute distress. CVS: Regular rate and rhythm. No murmurs, rubs, or gallops. LUNGS: Clear to auscultation bilaterally. ABDOMEN: Positive bowel sounds, soft, nontender, nondistended. EXTREMITIES: No edema. PERTINENT LABS: BMP: sodium 114 on 12/16, 132 on 12/19 Serum osmolality 12/17/: 265. Urine osmolarity 12/17: 146. Urine sodium: less than 20. Urine toxicology : positive for cannabinoids. PERTINENT IMAGING: CT brain 12/16: no acute intracranial abnormality. DISCHARGE CONDITION: Stable. ACTIVITY: As tolerated. DIET: Regular diet. The patient was advised to eat food with salt in addition to drinking fluid. DISCHARGE MEDICATIONS: 1. Aspirin 81 mg b.i.d. 2. Folic acid 1 mg p.o. daily. 3. Thiamine 100 mg p.o. daily. DISCHARGE INSTRUCTIONS AND FOLLOWUP: The patient was advised to follow up with his PCP in a week and have the sodium level rechecked. The patient was started on thiamine and folic acid due to his poor diet. Job ID: [id number] [facility]
== END 2018-12-19 13:48 | disposition home or self-care (01) | DRG 641 ==
LOC: ERS 22:28 → IMCU/EMU 12-17 01:10 → T4-B 12-18 22:26
PROVIDERS: ADMIT Internal Medicine; ATTEND Internal Medicine
DX: E87.1 Hypo-osmolality and hyponatremia (principal); E46 Unspecified protein-calorie malnutrition; E27.40 Unspecified adrenocortical insufficiency; G40.909 Epilepsy, unspecified, not intractable, without status epilepticus; F17.210 Nicotine dependence, cigarettes, uncomplicated; F12.10 Cannabis abuse, uncomplicated; D64.9 Anemia, unspecified; I10 Essential (primary) hypertension; E03.9 Hypothyroidism, unspecified; F19.10 Other psychoactive substance abuse, uncomplicated; Z98.42 Cataract extraction status, left eye; Z98.41 Cataract extraction status, right eye; Z68.21 Body mass index [BMI] 21.0-21.9, adult; E87.8 Other disorders of electrolyte and fluid balance, not elsewhere classified; F10.20 Alcohol dependence, uncomplicated
CPT/HCPCS: 36415; 70450; 80048; 80053; 80306; 82607; 82746; 83735; 83930; 83935; 84146; 84300; 85025; 90471; 90662; 96361; 96374; G0008; J2405; J7131

== ENCOUNTER 2024-10-28 15:51 | Inpatient (IN) | payer MEDICARE, OTHER ==
[~2024-10-28 15:51] MED LIST: Iopamidol-370 76% 500 ML MDV (1 ML CHARGE) ONE
[2024-10-28 16:08] LABS: #Basophils 0.06 10x3/uL (0.0-0.2); #Eosinophils 0.24 10x3/uL (0.0-0.7); #Monocytes 1.31 10x3/uL (0.11-0.59); #Neutrophils 6.30 10x3/uL (1.40-6.50); %Basophils 0.6 % (0.0-1.0); %Eosinophils 2.6 % (0.0-10.0); %Lymphocytes 15.3 % (21.0-51.0); %Monocytes 14.0 % (0.0-10.0); %Neutrophils 67.1 % (42.0-75.0); Hematocrit 27.8 % (42.0-52.0); Hemoglobin 9.5 g/dL (14.0-18.0); Mean Corpuscular Hemoglobin 27.6 pg (27.0-31.0); Mean Corpuscular Volume 80.8 fL (78.0-98.0); Platelet Count 321 10x3/uL (130-400); Red Blood Cell (RBC) Count 3.44 mill/uL (4.70-6.10); White Blood Cell (WBC) Count 9.39 10x3/uL (4.8-10.8)
[2024-10-28 16:27] LABS: ALT (SGPT) 14 U/L (Less than 45); AST (SGOT) 31 U/L (11-34); Albumin 3.5 g/dL (3.1-4.5); Alkaline Phosphatase 95 U/L (40-110); Anion Gap 14 mmol/L (10-20); BUN (Urea Nitrogen) 11 mg/dL (8.4-25.7); Bilirubin, Total 0.4 mg/dL (0.3-1.2); Calc. Creatinine Clearance 0 mL/min (70-130); Calcium 8.9 mg/dL (7.8-10.44); Carbon Dioxide 23 mmol/L (23-31); Chloride 91 mmol/L (98-107); Globulin 3.1 g/dL (2.4-3.5); Glucose 123 mg/dL (83-110); Potassium 4.0 mmol/L (3.5-5.1); Sodium 124 mmol/L (136-145)
[2024-10-28 16:30] LABS: INR-International Normal Ratio 1.0; PTT 31.6 sec (22.9-36.1); Prothrombin Time 13.4 sec (12.0-14.7)
[2024-10-28 16:55] LABS: Cocaine Metabolite Screen Negative (Negative); THC/Cannabinoid Screen Negative (Negative); Tricyclic Screen Negative (Negative)
[2024-10-28 16:56] LABS: Bacteria/HPF 2+ HPF (None Seen); CAUTI Indications for Culture Alt mental st,lethar; Glucose, Urine (Dipstick) Normal (Negative); Leukocyte 250 Leu/uL (Negative); Protein, Urine (Dipstick) Negative (Neg-Trace); RBC/HPF 0-3 HPF (0-3); Specific Gravity, Urine 1.012 (1.002-1.036); WBC/HPF 21-50 HPF (0-3)
[2024-10-28 16:58] LABS: Urine Culture Reflex Yes Yes
[2024-10-28] MEDS ORDERED: Aspirin Chewable 81 MG TAB ONE (17:19)
[2024-10-28] MEDS ORDERED: cefTRIAXone (ROCEPHIN) 1 GM VIAL ONE (17:19)
[2024-10-28] MEDS ORDERED: Calcium Carbonate 500 MG ChewTAB PO PRN (17:36)
[2024-10-28] MEDS ORDERED: Guaifenesin DM 100-10/5 ML UDCUP PO PRN (17:36)
[2024-10-28] MEDS ORDERED: Ondansetron PF 4 MG/2 ML Vial IVP PRN (17:36)
[2024-10-28] MEDS ORDERED: Senokot S 8.6-50 MG TAB PO PRN (17:36)
[2024-10-28] MEDS ORDERED: Magnesium Sulfate/D5W 1 GM/100 ML BAG IVPB SCH (17:45)
[2024-10-28 20:11] LABS: Osmolality, Serum 259 mOsm/kg (280-301)
[2024-10-28 21:33] LABS: Potassium, Urine 10.7 mmol/L; Sodium, Urine 59.0 mmol/L (Not Available)
[2024-10-28 21:38] LABS: Osmolality, Urine 199 mOsm/kg (50-1200)
[2024-10-28 22:25] LABS: Anion Gap 13 mmol/L (10-20); BUN (Urea Nitrogen) 8 mg/dL (8.4-25.7); Calc. Creatinine Clearance 0 mL/min (70-130); Calcium 8.8 mg/dL (7.8-10.44); Carbon Dioxide 23 mmol/L (23-31); Chloride 96 mmol/L (98-107); Glucose 101 mg/dL (83-110); Potassium 4.0 mmol/L (3.5-5.1); Sodium 128 mmol/L (136-145)
[2024-10-28] MEDS: Rosuvastatin 10 MG TAB PO SCH (23:01)
[2024-10-28] MEDS: Magnesium 2 GM/50 ML(in water) 2 GM in Premix 1 BAG IVPB SCH ×2 (23:02→23:03)
[2024-10-28] MEDS: Acetaminophen 325 MG TAB PO PRN (23:02)
[2024-10-29 02:48] VITALS: BMI 17.6
[2024-10-29 04:24] LABS: #Basophils 0.06 10x3/uL (0.0-0.2); #Eosinophils 0.25 10x3/uL (0.0-0.7); #Monocytes 0.80 10x3/uL (0.11-0.59); #Neutrophils 6.82 10x3/uL (1.40-6.50); %Basophils 0.7 % (0.0-1.0); %Eosinophils 2.8 % (0.0-10.0); %Lymphocytes 12.0 % (21.0-51.0); %Monocytes 8.8 % (0.0-10.0); %Neutrophils 75.4 % (42.0-75.0); Hematocrit 26.5 % (42.0-52.0); Hemoglobin 8.8 g/dL (14.0-18.0); Mean Corpuscular Hemoglobin 27.3 pg (27.0-31.0); Mean Corpuscular Volume 82.3 fL (78.0-98.0); Platelet Count 303 10x3/uL (130-400); Red Blood Cell (RBC) Count 3.22 mill/uL (4.70-6.10); White Blood Cell (WBC) Count 9.05 10x3/uL (4.8-10.8)
[2024-10-29 06:06] LABS: Anion Gap 12 mmol/L (10-20); BUN (Urea Nitrogen) 7 mg/dL (8.4-25.7); CK (CPK) 504 U/L (30-200); Calc. Creatinine Clearance 77 mL/min (70-130); Calcium 8.2 mg/dL (7.8-10.44); Carbon Dioxide 23 mmol/L (23-31); Cardiac Risk 2.5 (Less than 4.5); Chloride 96 mmol/L (98-107); Cholesterol 135 mg/dl (< 200 Desired); Glucose 93 mg/dL (83-110); HDL Cholesterol 54 mg/dL (>60 Neg Risk); LDL Cholesterol, Calculated 69 mg/dL; Magnesium 2.4 mg/dL (1.6-2.6); Potassium 3.7 mmol/L (3.5-5.1); Sodium 127 mmol/L (136-145); Triglycerides 59 mg/dL (Less than 150)
[2024-10-29] MEDS: Multivit, Therapeutic 1 TAB PO SCH (08:20)
[2024-10-29] MEDS: Enoxaparin 40 MG (0.4 mL) SYRINGE SC SCH (08:20)
[2024-10-29] MEDS: Folic Acid 1 MG TAB PO SCH (08:20)
[2024-10-29] MEDS: Pantoprazole 40 MG DR.TAB PO SCH (08:20)
[2024-10-29] MEDS: cefTRIAXone\\ROCEPHIN 1 GM in Sodium Chloride 0.9% 100 ML IVPB SCH (17:17)
[2024-10-30 04:54] LABS: #Basophils 0.04 10x3/uL (0.0-0.2); #Eosinophils 0.18 10x3/uL (0.0-0.7); #Monocytes 1.17 10x3/uL (0.11-0.59); #Neutrophils 6.64 10x3/uL (1.40-6.50); %Basophils 0.4 % (0.0-1.0); %Eosinophils 1.9 % (0.0-10.0); %Lymphocytes 16.8 % (21.0-51.0); %Monocytes 12.1 % (0.0-10.0); %Neutrophils 68.5 % (42.0-75.0); Hematocrit 29.5 % (42.0-52.0); Hemoglobin 9.5 g/dL (14.0-18.0); Mean Corpuscular Hemoglobin 27.4 pg (27.0-31.0); Mean Corpuscular Volume 85.0 fL (78.0-98.0); Platelet Count 313 10x3/uL (130-400); Red Blood Cell (RBC) Count 3.47 mill/uL (4.70-6.10); White Blood Cell (WBC) Count 9.69 10x3/uL (4.8-10.8)
[2024-10-30 05:14] LABS: Anion Gap 12 mmol/L (10-20); BUN (Urea Nitrogen) 11 mg/dL (8.4-25.7); Calc. Creatinine Clearance 70 mL/min (70-130); Calcium 8.5 mg/dL (7.8-10.44); Carbon Dioxide 24 mmol/L (23-31); Chloride 100 mmol/L (98-107); Glucose 92 mg/dL (83-110); Potassium 4.3 mmol/L (3.5-5.1); Sodium 132 mmol/L (136-145)
[2024-10-30] MEDS: cefTRIAXone (ROCEPHIN) 1 GM VIAL ONE (17:36)
[2024-10-31 05:09] LABS: Anion Gap 9 mmol/L (10-20); BUN (Urea Nitrogen) 11 mg/dL (8.4-25.7); Calc. Creatinine Clearance 73 mL/min (70-130); Calcium 8.4 mg/dL (7.8-10.44); Carbon Dioxide 22 mmol/L (23-31); Chloride 103 mmol/L (98-107); Glucose 85 mg/dL (83-110); Magnesium 2.1 mg/dL (1.6-2.6); Potassium 4.1 mmol/L (3.5-5.1); Sodium 130 mmol/L (136-145)
[2024-11-01 12:27] VITALS: BP 167/66; TEMP 98.3
== END 2024-11-01 14:35 | disposition home or self-care (01) | DRG 897 ==
LOC: ERS 15:51 → 2SE 17:22
PROVIDERS: ADMIT Student in an Organized Health Care Education/Training Program; ATTEND Hospitalist
PROC: 3E03329 Introduction of Other Anti-infective into Peripheral Vein, Percutaneous Approach (ICD-10-PCS; principal; 2024-10-28)
PROC: HZ2ZZZZ Detoxification Services for Substance Abuse Treatment (ICD-10-PCS; 2024-10-28)
DX: F10.231 Alcohol dependence with withdrawal delirium (principal); E22.2 Syndrome of inappropriate secretion of antidiuretic hormone; F03.911 Unspecified dementia, unspecified severity, with agitation; N39.0 Urinary tract infection, site not specified; J94.8 Other specified pleural conditions; R47.01 Aphasia; F03.918 Unspecified dementia, unspecified severity, with other behavioral disturbance; G93.40 Encephalopathy, unspecified; I10 Essential (primary) hypertension; D64.9 Anemia, unspecified; Z66 Do not resuscitate; F17.210 Nicotine dependence, cigarettes, uncomplicated; R56.9 Unspecified convulsions; G93.89 Other specified disorders of brain; I65.22 Occlusion and stenosis of left carotid artery; R29.6 Repeated falls; Z98.890 Other specified postprocedural states; Z79.899 Other long term (current) drug therapy; Z86.73 Personal history of transient ischemic attack (TIA), and cerebral infarction without residual deficits; R91.8 Other nonspecific abnormal finding of lung field; B96.1 Klebsiella pneumoniae [K. pneumoniae] as the cause of diseases classified elsewhere; W19.XXXA Unspecified fall, initial encounter
CPT/HCPCS: 36415; 70450; 70496; 70498; 70551; 71250; 72125; 80048; 80053; 80061; 80306; 81001; 82436; 82550; 82607; 83735; 83930; 83935; 84133; 84300; 84443; 85025; 85610; 85730; 87077; 87086; 87186; 93005; 94760; 96365; J0696; J1650; J2060; J3411; J3475; J7030; Q9967